=== PATIENT | female | born 1970 | race African-American/Black ===

== ENCOUNTER 2017-03-27 07:23 | Observation (INO) | payer OTHER ==
[~2017-03-27] VITALS: Ht 162.6 cm; Wt 58.0 kg
[2017-03-27] VITALS (8 sets, daily range): BP systolic 144–189; BP diastolic 64–119; PULSE 82–93; RESP 18–20; TEMP 98.1–99.3; O2SAT 95–100
[~2017-03-27 07:23] MED LIST: ADVAI250I PO; HYDR12.56 PO; IBUP600T26 PO; MIRTA15 PO; MONT10TA2 PO; ROBA750T3 PO; TRAZ50TA4 PO
--- NOTE | 2017-03-27 07:33 | PD ---
HPI Chief Complaint: Respiratory Distress Time Seen by Provider: 07:33 Travel History International Travel<30 days: No Contact w/Intl Traveler<30days: No Traveled to known affect area: No History of Present Illness HPI 46-year-old female came to the emergency room brought by EMS for respiratory distress. Patient has history of asthma. She was somnolent upon arrival. She would open her eyes upon calling her name but refuses to talk. History was mostly obtained from ring maker. Patient has not used her inhaler. There is questionable compliance issue since patient is not answering questions at this point. Patient received 2 albuterol nebulizers en route and IV Solu-Medrol. Upon arrival her oxygen saturation was 93% on room air. Rest of the vital signs were stable. [facility] Past Medical History Narrative Medical List of her past medical, surgical, social and family history is reviewed from the nursing note. Anemia: Yes Asthma: Yes Bipolar Disorder: Yes Anxiety: Yes Depression: Yes Cancer: No Cardiovascular Problems: Yes (HTN) Diabetes: No Diminished Hearing: No Endocrine: No Gastrointestinal Disorders: Yes GERD: Yes Genitourinary: No Headaches: Yes Hypertension: Yes Immune Disorder: No Implanted Vascular Access Dvce: No Insomnia: Yes Musculoskeletal: No Neurologic: Yes (HEADACHES) Psychiatric: Yes (Schizoaffective Disorder) Reproductive: No Respiratory: Yes Immunizations Current: Yes Migraines: Yes Schizophrenia: Yes (schizoaffective) Seizures: Yes (withdrawal induced seizure in 2006) ?: Not LMP: last week : 5 Para: 2 Miscarriage: 2 : 1 Dilation and Curettage (D&C): Yes Tubal Ligation: Yes Past Surgical History Surgical History: No Previous Surgery Gynecologic Surgery: Yes Other Surgery: Yes Social History Alcohol Use: Yes Tobacco Use: Yes (1/2 PPD) Substance Use: Yes Allergies-Medications (Allergen,Severity, Reaction): Coded Allergies: Sulfa (Sulfonamide Antibiotics) (Unverified Allergy, Severe, Hives, ) Comments List of her allergies reviewed from the nursing note. Reported Meds & Prescriptions Reported Meds & Active Scripts Active Narrative Medication List of her home medications reviewed from the nursing note. Review of Systems Except as stated in HPI: all other systems reviewed are Neg Respiratory: Positive: Shortness of Breath Physical Exam Narrative GENERAL: Lethargic, opens eyes upon calling her name but prefers to go back to sleep. Not answering questions SKIN: Focused skin assessment warm/dry. HEAD: Atraumatic. Normocephalic. EYES: Pupils equal and round. No scleral icterus. No injection or drainage. ENT: No nasal bleeding or discharge. Mucous membranes pink and moist. NECK: Trachea midline. No JVD. CARDIOVASCULAR: Regular rate and rhythm. No murmur appreciated. RESPIRATORY: Decreased air entry bilaterally with end expiratory wheeze. GASTROINTESTINAL: Abdomen soft, non-tender, nondistended. Hepatic and splenic margins not palpable. MUSCULOSKELETAL: No obvious deformities. No clubbing. No cyanosis. No edema. NEUROLOGICAL: Awake and alert. No obvious cranial nerve deficits. Motor grossly within normal limits. Normal speech. PSYCHIATRIC: Appropriate mood and affect; insight and judgment normal. Data Data Last Documented VS Vital Signs Date Time Temp Pulse Resp B/P (MAP) Pulse Ox O2 Delivery O2 Flow Rate FiO2 03/27/17 08:36 82 152/64 (93) 03/27/17 07:41 18 95 Room Air 03/27/17 07:33 98.4 Orders Orders Electrocardiogram (03/27/17 ) Complete Blood Count With Diff (03/27/17 07:38) Basic Metabolic Panel (Bmp) (03/27/17 07:38) B-Type Natriuretic Peptide (03/27/17 07:38) Magnesium (Mg) (03/27/17 07:38) Troponin I (03/27/17 07:38) Urinalysis - C+S If Indicated (03/27/17 07:38) Iv Access Insert/Monitor (03/27/17 07:38) Ecg Monitoring (03/27/17 07:38) Oximetry (03/27/17 07:38) Oxygen Administration (03/27/17 07:38) Chest, Single Ap (03/27/17 07:38) Sodium Chloride 0.9% Flush (Ns Flush) (03/27/17 07:45) Albuterol-Ipratropium Neb (Duoneb Neb) (03/27/17 07:45) Arterial Blood Gas (Abg) (03/27/17 ) Drug Screen, Random Urine (03/27/17 07:38) Naloxone Inj (Narcan Inj) (03/27/17 08:15) Potassium Chlor 10 Meq Premix (Kcl 10 Me (03/27/17 09:00) Potassium Chloride (Kcl) (03/27/17 09:00) Albuterol Neb (Albuterol Neb) (03/27/17 09:30) Place In Observation (03/27/17 ) Code Status (03/27/17 10:18) Vital Signs (Adult) Q4H (03/27/17 10:18) Activity Oob Ad Cristiana (03/27/17 10:18) Cigarette Machine Operator / Telemetry .CONTINUOUS (03/27/17 10:18) Intake + Output MAYRA.QSHIFT (03/27/17 10:18) Notify Dr: Other (03/27/17 10:18) Sodium Chlor 0.9% 1000 Ml Inj (Ns 1000 M (03/27/17 11:00) Sodium Chloride 0.9% Flush (Ns Flush) (03/27/17 10:30) Sodium Chloride 0.9% Flush (Ns Flush) (03/27/17 21:00) Acetaminophen (Tylenol) (03/27/17 10:30) Ondansetron Inj (Zofran Inj) (03/27/17 10:30) Basic Metabolic Panel (Bmp) (03/28/17 06:00) Complete Blood Count With Diff (03/28/17 06:00) Resp Oxygen Kale C Titrat 1-4 L (03/27/17 ) Scd Bilateral/Knee High MAYRA.BID (03/27/17 10:18) Naloxone Inj (Narcan Inj) (03/27/17 10:30) Docusate Sodium-Senna (Onelia-Colace) (03/27/17 21:00) Magnesium Hydroxide Liq (Milk Of Magnesi (03/27/17 10:30) Sennosides (Senokot) (03/27/17 10:30) Bisacodyl Supp (Dulcolax Supp) (03/27/17 10:30) Lactulose Liq (Lactulose Liq) (03/27/17 10:30) Budesonide Neb (Pulmicort Respule Neb) (03/27/17 11:00) Albuterol-Ipratropium Neb (Duoneb Neb) (03/27/17 12:00) Potassium, Serum (K) (03/27/17 14:00) Magnesium (Mg) (03/27/17 14:00) Admit Order (Ed Use Only) (03/27/17 10:32) Labs Laboratory Tests Test 03/27/17 07:35 03/27/17 07:48 03/27/17 08:20 White Blood Count 7.0 TH/MM3 Red Blood Count 4.43 MIL/MM3 Hemoglobin 13.5 GM/DL Hematocrit 40.1 % Mean Corpuscular Volume 90.3 FL Mean Corpuscular Hemoglobin 30.4 PG Mean Corpuscular Hemoglobin Concent 33.7 % Red Cell Distribution Width 14.8 % Platelet Count 219 TH/MM3 Mean Platelet Volume 7.9 FL Neutrophils (%) (Auto) 58.3 % Lymphocytes (%) (Auto) 23.1 % Monocytes (%) (Auto) 12.8 % Eosinophils (%) (Auto) 5.1 % Basophils (%) (Auto) 0.7 % Neutrophils # (Auto) 4.1 TH/MM3 Lymphocytes # (Auto) 1.6 TH/MM3 Monocytes # (Auto) 0.9 TH/MM3 Eosinophils # (Auto) 0.4 TH/MM3 Basophils # (Auto) 0.0 TH/MM3 CBC Comment DIFF FINAL Differential Comment Blood Urea Nitrogen 9 MG/DL Creatinine 0.77 MG/DL Random Glucose 77 MG/DL Calcium Level 8.9 MG/DL Magnesium Level 2.1 MG/DL Sodium Level 143 MEQ/L Potassium Level 3.0 MEQ/L Chloride Level 108 MEQ/L Carbon Dioxide Level 26.8 MEQ/L Anion Gap 8 MEQ/L Estimat Glomerular Filtration Rate 98 ML/MIN Troponin I 0.02 NG/ML B-Type Natriuretic Peptide 56 PG/ML Blood Gas Puncture Site RT RADIAL Blood Gas Patient Temperature 98.6 Blood Gas HCO3 24 mmol/L Blood Gas Base Excess -0.6 mmol/L Blood Gas Oxygen Saturation 87 % Arterial Blood pH 7.39 Arterial Blood Partial Pressure CO2 40 mmHg Arterial Blood Partial Pressure O2 61 mmHG Arterial Blood Oxygen Content 15.6 Vol % Arterial Blood Carboxyhemoglobin 4.3 % Arterial Blood Methemoglobin 0.9 % Blood Gas Hemoglobin 12.8 G/DL Blood Gas Inspired Oxygen 21 % Urine Color LIGHT-YELLOW Urine Turbidity CLEAR Urine pH 6.0 Urine Specific [place] 1.015 Urine Protein 30 mg/dL Urine Glucose (UA) NEG mg/dL Urine Ketones NEG mg/dL Urine Occult Blood NEG Urine Nitrite NEG Urine Bilirubin NEG Urine Urobilinogen LESS THAN 2.0 MG/DL Urine Leukocyte Esterase NEG Urine RBC 1 /hpf Urine WBC 1 /hpf Urine Squamous Epithelial Cells <1 /hpf Urine Bacteria RARE /hpf Urine Mucus FEW /lpf Microscopic Urinalysis Comment CULT NOT INDICATED Urine Opiates Screen NEG Urine Barbiturates Screen NEG Urine Amphetamines Screen NEG Urine Benzodiazepines Screen NEG Urine Cocaine Screen POS Urine Cannabinoids Screen NEG MDM Medical Decision Making Medical Screen Exam Complete: Yes Emergency Medical Condition: Yes Medical Record Reviewed: Yes Interpretation(s) Twelve-lead EKG was reviewed by me. Normal sinus rhythm, normal axis, nonspecific ST-T wave changes, LVH as per voltage criteria. Heart rate of 84 bpm. Differential Diagnosis Pneumonia, CHF, acute asthma exacerbation, substance abuse Narrative Course 10:44 AM patient was given 2 DuoNeb times by me. Patient was also given IV Narcan 0.4 mg to this to see if she wakes up since she was so somnolent. This did not affect the lethargy. Patient oxygen saturation went down to 90% although air entry has improved. I've given her 2 more albuterol nebulizer. Meanwhile urine drug screen came back and positive for cocaine. I have decided to admit her. I discussed the case with the hospitalist was accepted it. Procedures EKG Prior to Arrival: No Diagnosis Primary Impression: Acute asthma exacerbation Qualified Codes: J45.901 - Unspecified asthma with (acute) exacerbation Additional Impressions: Hypoxia Cocaine abuse Altered mental status Qualified Codes: R40.0 - Somnolence Admitting Information Admitting Physician Requests: Observation Scripts Beclomethasone Inh (Qvar Inh) 80 Mcg/Act Aero 1 PUFF INH BID for Asthma Management, #1 INHALER 0 Refills Prov: Marcin Wilson MD 03/28/17 Amlodipine (Amlodipine) 10 Mg Tab 10 MG PO DAILY for Blood Pressure Management, #30 TAB 0 Refills Prov: Marcin Wilson MD 03/28/17 Albuterol 18 GM Inh (Ventolin Hfa 18 GM Inh) 90 Mcg/Act Aer 1 PUFF INH Q4H Y for SHORTNESS OF BREATH, #1 INHALER 0 Refills Prov: Marcin Wilson MD 03/28/17 Hydrochlorothiazide (Hydrochlorothiazide) 25 Mg Tab 25 MG PO DAILY for htn, #30 TAB 0 Refills Prov: Marcin Wilson MD 03/28/17 Mirna Bourgeois MD Mar 27, 2017 07:33
[2017-03-27] MEDS ORDERED: HYDR25TA5 PO (07:35)
[2017-03-27] MEDS ORDERED: VENTAER INH (07:35)
[2017-03-27] MEDS ORDERED: SODIUM CHLORIDE 0.9% FLUSH 10 ML FLUSH IVF PRN (07:45)
[2017-03-27] MEDS: RESP: ALBUTEROL 2.5 MG/IPRATROPIUM 0.5 MG NEB (SCH) INH ×2 (07:47→07:48)
[2017-03-27 08:02] LABS: AUTOMATED NEUTROPHIL # 4.1 TH/MM3 (1.8-7.7); BASOPHIL % 0.7 % (0.0-2.0); EOSINOPHIL # 0.4 TH/MM3 (0-0.4); EOSINOPHIL % 5.1 % (0.0-4.0); HEMATOCRIT 40.1 % (35.0-46.0); HEMO FLAGS DIFF FINAL; LYMPH % 23.1 % (9.0-44.0); LYMPHOCYTE # 1.6 TH/MM3 (1.0-4.8); MEAN CELL VOLUME 90.3 FL (80.0-100.0); MEAN CORPUSCULAR HEMOGLOBIN 30.4 PG (27.0-34.0); MEAN CORPUSCULAR HGB CONC 33.7 % (32.0-36.0); MONO % 12.8 % (0.0-8.0); NEUT % 58.3 % (16.0-70.0); PLATELET COUNT 219 TH/MM3 (150-450); RED BLOOD COUNT 4.43 MIL/MM3 (4.00-5.30); RED CELL DISTRIBUTION WIDTH 14.8 % (11.6-17.2)
[2017-03-27 08:04] LABS: BLOOD GAS BASE EXCESS -0.6 mmol/L (-2-2); BLOOD GAS CARBOXYHEMOGLOBIN 4.3 % (0-4); BLOOD GAS HCO3 24 mmol/L (22-26); BLOOD GAS METHEMOGLOBIN 0.9 % (0-2); BLOOD GAS O2 HGB SATURATION 87 % (90-100); BLOOD GAS OXYGEN CONTENT 15.6 Vol % (12.0-20.0); BLOOD GAS PCO2 40 mmHg (38-42); BLOOD GAS PO2 61 mmHG (61-120); BLOOD GAS TOTAL HGB 12.8 G/DL (12.0-16.0); TEMP CORR TO 98.6
[2017-03-27 08:05] LABS: CRITICAL VALUE YES; DRAW SITE RT RADIAL; FIO2 21 %; NUMBER OF ARTERIAL PUNCTURES 2; STAT YES; ULNAR PULSE PRESENT
[2017-03-27] MEDS ORDERED: NALOXONE HCL 0.4 MG/ML AMP IV PUSH ONE (08:15)
[2017-03-27 08:18] LABS: BICARBONATE 26.8 MEQ/L (21.0-32.0); MAGNESIUM 2.1 MG/DL (1.5-2.5)
--- NOTE | 2017-03-27 08:27 | RADRPT ---
EXAM DATE/TIME: 03/27/2017 08:16 [place] COMPARISON: No previous studies available for comparison. INDICATIONS : Shortness of breath. MEDICAL HISTORY : None. SURGICAL HISTORY : None. ENCOUNTER: Initial ACUITY: 4 - 6 days PAIN SCORE: 0/10 LOCATION: Bilateral chest FINDINGS: A single view of the chest demonstrates the lungs to be symmetrically aerated without evidence of mas s, infiltrate or effusion. The cardiomediastinal contours are unremarkable. Osseous structures are intact. CONCLUSION: No acute disease. Yeison Gusman MD on March 27, 2017 at 8:20 Board Certified Radiologist. This report was verified electronically.
[2017-03-27] MEDS ORDERED: POTASSIUM CHLORIDE 20 MEQ CONTROLLED RELEASE TAB PO ONE (09:00)
[2017-03-27] MEDS ORDERED: POTASSIUM CHLOR 10 MEQ PREMIX 100 ML IV ONE (09:00)
[2017-03-27 09:14] LABS: BACTERIA, URINE RARE /hpf; BLOOD, URINE NEG (NEG); COMMENT (UR) CULT NOT INDICATED; CULTURE IF INDICATED CULT NOT INDICATED; GLUCOSE,URINE NEG (NEG); KETONE, URINE NEG (NEG); MUCUS URINE FEW /lpf (OCC); NITRITE,URINE NEG (NEG); SQUAMOUS EPITHELIAL CELL URINE <1 /hpf (0-5); URINE COLOR LIGHT-YELLOW (YELLW/STRAW)
[2017-03-27] MEDS: RESP: ALBUTEROL 2.5 MG/3 ML NEB (SCH) INH (09:28)
[2017-03-27] MEDS ORDERED: LACTULOSE SYRUP 20 GM/30 ML CUP PO PRN (10:30)
[2017-03-27] MEDS ORDERED: SENNOSIDES 8.6 MG TAB PO PRN (10:30)
[2017-03-27] MEDS ORDERED: SODIUM CHLORIDE 0.9% FLUSH 10 ML FLUSH IV FLUSH PRN (10:30)
[2017-03-27] MEDS ORDERED: BISACODYL 10 MG SUPP RECTAL PRN (10:30)
[2017-03-27] MEDS ORDERED: NALOXONE HCL 0.4 MG/ML AMP IV PUSH PRN (10:30)
[2017-03-27] MEDS ORDERED: ONDANSETRON HCL 4 MG/2 ML VIAL IVP PRN (10:30)
[2017-03-27] MEDS ORDERED: MAGNESIUM HYDROXIDE SUSP 30 ML CUP PO PRN (10:30)
[2017-03-27] MEDS ORDERED: ACETAMINOPHEN 325 MG TAB PO PRN (10:30)
[2017-03-27] MEDS: SODIUM CHLOR 0.9% 1000 ML INJ 1,000 ML IV SCH ×2 (11:36→21:55)
--- NOTE | 2017-03-27 11:49 | EKG ---
Date Performed: 03/27/2017 Time Performed: 07:41:20 PTAGE: 46 years EKG: Sinus rhythm MINIMAL VOLTAGE CRITERIA FOR LVH, CONSIDER NORMAL VARIANT NONSPECIFIC T-WAVE ABNORMALITY BORDERLINE ECG PREVIOUS TRACING : 12/16/2014 21.27 No significant change from previous tracing noted. DOCTOR: Terry Roy Interpretating Date/Time 03/27/2017 11:48:28
--- NOTE | 2017-03-27 12:16 | HHI.HP ---
HPI Service [facility] Primary Care Physician [facility] Admission Diagnosis acute asthma exacerbation, hypoxia Diagnoses: Chief Complaint: Shortness of breath Travel History International Travel<30 Days: No Contact w/Intl Traveler <30 Da: No Traveled to Known Affected Are: No History of Present Illness This is a pleasant 46 y/o Female with Bipolar Disorder, Asthma, Anxiety disorder , Depression, Hypertension Schizoaffective disorder, who came to ER with Shortness of breath, brought in by EMS, as per patient she is been off her medicines for the last three months, she had some problems with her and is living with her uncle, she has rescue inhaler from his uncle and is not taking her HCTZ for Hypertension, in ER managed as Asthma exacerbation, on my evaluation I could not find Expiratory wheezing. has good Inspiratory breaths. Review of Systems Constitutional: DENIES: Fever, Chills, Change in appetite Endocrine: DENIES: Heat/cold intolerance Eyes: DENIES: Blurred vision, Eye pain Except as stated in HPI: all other systems reviewed are Neg Past Family Social History Past Medical History Asthma Bipolar Disorder Anxiety Depression Hypertension Schizoaffective Disorder Withdrawal Induced seizure in 2006 Past Surgical History Tubal Ligation Reported Medications Reported Meds & Active Scripts Active Reported Ventolin Hfa 18 GM Inh (Albuterol Sulfate) 90 Mcg/Act Aer 1 Puff INH Q4H PRN Hydrochlorothiazide 25 Mg Tab 25 Mg PO DAILY Allergies: Coded Allergies: Sulfa (Sulfonamide Antibiotics) (Unverified Allergy, Severe, Hives, ) Active Ordered Medications Current Medications Medications (Trade) Dose Ordered Sig/Ele Route Start Time Stop Time Status Last Admin Sodium Chloride 1,000 ml @ 100 mls/hr Q10H IV 03/27/17 11:00 03/27/17 11:36 (NS Flush) 2 ml UNSCH PRN IV FLUSH 03/27/17 10:30 (NS Flush) 2 ml BID IV FLUSH 03/27/17 21:00 (Tylenol) 650 mg Q4H PRN PO 03/27/17 10:30 (Zofran Inj) 4 mg Q6H PRN IVP 03/27/17 10:30 (Narcan Inj) 0.4 mg UNSCH PRN IV PUSH 03/27/17 10:30 (Onelia-Colace) 1 tab BID PO 03/27/17 21:00 (Milk Of Magnesia Liq) 30 ml Q12H PRN PO 03/27/17 10:30 (Senokot) 17.2 mg Q12H PRN PO 03/27/17 10:30 (Dulcolax Supp) 10 mg DAILY PRN RECTAL 03/27/17 10:30 (Lactulose Liq) 30 ml DAILY PRN PO 03/27/17 10:30 (Pulmicort Respule Neb) 0.5 mg Q12HR NEB NEB 03/27/17 11:00 (Duoneb Neb) 1 ampule Q4HR NEB NEB 03/27/17 12:00 Family History asked and denied. Social History Alcohol abuse daily, Beer and hard liquor Tobacco dependence half pack of cigarettes daily Cocaine abuse Physical Exam Vital Signs Vital Signs Date Time Temp Pulse Resp B/P (MAP) Pulse Ox O2 Delivery O2 Flow Rate FiO2 03/27/17 08:36 82 152/64 (93) 03/27/17 07:41 84 18 177/119 (138) 95 Room Air 03/27/17 07:41 95 Room Air 03/27/17 07:36 96 Room Air 03/27/17 07:33 98.4 90 18 177/119 (138) 100 Room Air Physical Exam GENERAL: Well-developed patient, in no apparent distress. SKIN: No rashes, ecchymoses or lesions. Cool and dry. HEAD: Atraumatic. Normocephalic. No temporal or scalp tenderness. EYES: Pupils equal round and reactive. Extraocular motions intact. No scleral icterus. No injection or drainage. ENT: Nose without bleeding, purulent drainage or septal hematoma. Throat without erythema, tonsillar hypertrophy or exudate. Uvula midline. Airway patent. NECK: Trachea midline. No JVD or lymphadenopathy. Supple, nontender, no meningeal signs. CARDIOVASCULAR: Regular rate and rhythm without murmurs, gallops, or rubs. RESPIRATORY: Clear to auscultation. Breath sounds equal bilaterally. No wheezes , rales, or rhonchi. GASTROINTESTINAL: Abdomen soft, non-tender, nondistended. No hepato-splenomegaly , or palpable masses. No guarding. MUSCULOSKELETAL: Extremities without clubbing, cyanosis, or edema. No joint tenderness, effusion, or edema noted. No calf tenderness. Negative Homans sign bilaterally. NEUROLOGICAL: Awake and alert. Cranial nerves II through XII intact. Motor and sensory grossly within normal limits. Five out of 5 muscle strength in all muscle groups. Normal speech. Laboratory Laboratory Tests Test 03/27/17 07:35 03/27/17 07:48 03/27/17 08:20 White Blood Count 7.0 Red Blood Count 4.43 Hemoglobin 13.5 Hematocrit 40.1 Mean Corpuscular Volume 90.3 Mean Corpuscular Hemoglobin 30.4 Mean Corpuscular Hemoglobin Concent 33.7 Red Cell Distribution Width 14.8 Platelet Count 219 Mean Platelet Volume 7.9 Neutrophils (%) (Auto) 58.3 Lymphocytes (%) (Auto) 23.1 Monocytes (%) (Auto) 12.8 Eosinophils (%) (Auto) 5.1 Basophils (%) (Auto) 0.7 Neutrophils # (Auto) 4.1 Lymphocytes # (Auto) 1.6 Monocytes # (Auto) 0.9 Eosinophils # (Auto) 0.4 Basophils # (Auto) 0.0 CBC Comment DIFF FINAL Differential Comment Blood Urea Nitrogen 9 Creatinine 0.77 Random Glucose 77 Calcium Level 8.9 Magnesium Level 2.1 Sodium Level 143 Potassium Level 3.0 Chloride Level 108 Carbon Dioxide Level 26.8 Anion Gap 8 Estimat Glomerular Filtration Rate 98 Troponin I 0.02 B-Type Natriuretic Peptide 56 Blood Gas Puncture Site RT RADIAL Blood Gas Patient Temperature 98.6 Blood Gas HCO3 24 Blood Gas Base Excess -0.6 Blood Gas Oxygen Saturation 87 Arterial Blood pH 7.39 Arterial Blood Partial Pressure CO2 40 Arterial Blood Partial Pressure O2 61 Arterial Blood Oxygen Content 15.6 Arterial Blood Carboxyhemoglobin 4.3 Arterial Blood Methemoglobin 0.9 Blood Gas Hemoglobin 12.8 Blood Gas Inspired Oxygen 21 Urine Color LIGHT-YELLOW Urine Turbidity CLEAR Urine pH 6.0 Urine Specific [place] 1.015 Urine Protein 30 Urine Glucose (UA) NEG Urine Ketones NEG Urine Occult Blood NEG Urine Nitrite NEG Urine Bilirubin NEG Urine Urobilinogen LESS THAN 2.0 Urine Leukocyte Esterase NEG Urine RBC 1 Urine WBC 1 Urine Squamous Epithelial Cells <1 Urine Bacteria RARE Urine Mucus FEW Microscopic Urinalysis Comment CULT NOT INDICATED Urine Opiates Screen NEG Urine Barbiturates Screen NEG Urine Amphetamines Screen NEG Urine Benzodiazepines Screen NEG Urine Cocaine Screen POS Urine Cannabinoids Screen NEG Result Diagram: 03/27/17 0735 03/27/1735 Imaging Last Impressions Chest X-Ray 03/27/1738 Signed Impressions: Service Date/Time: Monday, March 27, 2017 08:16 - CONCLUSION: No acute disease. MD Danielle Velez VTE Risk Assessment Danielle VTE Risk Assessment: No/Low Risk (score <= 1) Caprini Risk Assessment Model Point Value = 1 Point Value = 2 Point Value = 3 Point Value = 5 Age 41-60 Minor surgery BMI > 25 kg/m2 Swollen legs Varicose veins or History of unexplained or recurrent spontaneous Oral contraceptives or hormone replacement Sepsis (< 1 month) Serious lung disease, including pneumonia (< 1 month) Abnormal pulmonary function Acute myocardial infarction Congestive heart failure (< 1 month) History of inflammatory bowel disease Medical patient at bed rest Age 61-74 Arthroscopic surgery Major open surgery (> 45 min) Laparoscopic surgery (> 45 min) Malignancy Confined to bed (> 72 hours) Immobilizing plaster cast Central venous access Age >= 75 History of VTE Family history of VTE Factor V Leiden Prothrombin [id number] Lupus anticoagulant Anticardiolipin antibodies Elevated serum homocysteine Heparin-induced thrombocytopenia Other congenital or acquired thrombophilia Stroke (< 1 month) Elective arthroplasty Hip, pelvis, or leg fracture Acute spinal cord injury (< 1 month) Prophylaxis Regimen Total Risk Factor Score Risk Level Prophylaxis Regimen 0-1 Low Early ambulation 2 Moderate Order ONE of the following: *Sequential Compression Device (SCD) *Heparin 5000 units SQ BID 3-4 Higher Order ONE of the following medications: *Heparin 5000 units SQ TID *Enoxaparin/Lovenox 40 mg SQ daily (WT < 150 kg, CrCl > 30 mL/min) *Enoxaparin/Lovenox 30 mg SQ daily (WT < 150 kg, CrCl > 10-29 mL/min) *Enoxaparin/Lovenox 30 mg SQ BID (WT < 150 kg, CrCl > 30 mL/min) AND/OR *Sequential Compression Device (SCD) 5 or more Highest Order ONE of the following medications: *Heparin 5000 units SQ TID (Preferred with Epidurals) *Enoxaparin/Lovenox 40 mg SQ daily (WT < 150 kg, CrCl > 30 mL/min) *Enoxaparin/Lovenox 30 mg SQ daily (WT < 150 kg, CrCl > 10-29 mL/min) *Enoxaparin/Lovenox 30 mg SQ BID (WT < 150 kg, CrCl > 30 mL/min) AND *Sequential Compression Device (SCD) Assessment and Plan Assessment and Plan This is a pleasant 46 y/o Female with Asthma who came to ER transferred by EMS due to Acute Asthma exacerbation 1. Acute Asthma exacerbation Improving, continue Nebulized corticosteroids, and Beta Mimetics, Oxygen to keep oxygen saturation over 90% 2. Bipolar Disorder/Anxiety Disorder/Bipolar Disorder/Schizophrenia she states use Invega and Risperdal but off this medicines at this time will need to follow with her Primary Psychiatry specialist on discharge 3. Hypertension not using HCTZ at this time Uncontrolled re started her medicines. Had ECG Sinus rhythm. 4. Tobacco dependence strongly recommended to stop smoking 5. Alcohol abuse she will be placed on CIWA protocol to avoid complications 6. Polysubstance abuse was used IV Narcan in ER the patient woke up from Lethargy probable secondary to drug abuse DVT prophylaxis SCDs. Code Status Full Code Discussed Condition With Patient and ER physician Doctor Mirna Bourgeois Guillermo MD Mar 27, 2017 12:16 pm
[2017-03-27] MEDS: RESP: BUDESONIDE 0.5 MG/2 ML NEB NEB SCH ×2 (13:13→20:25)
[2017-03-27] MEDS: RESP: ALBUTEROL 2.5 MG/IPRATROPIUM 0.5 MG NEB (SCH) NEB ×3 (13:13→20:25)
[2017-03-27] MEDS: HYDROCHLOROTHIAZIDE 25 MG TAB PO SCH (13:35)
[2017-03-27 18:03] LABS: MAGNESIUM 1.9 MG/DL (1.5-2.5)
[2017-03-27 18:30] LABS: POTASSIUM 3.5 MEQ/L (3.5-5.1)
[2017-03-27] MEDS: DOCUSATE SODIUM 50 MG/SENNA 8.6 MG TAB PO SCH (21:00)
[2017-03-27] MEDS: SODIUM CHLORIDE 0.9% FLUSH 10 ML FLUSH IV FLUSH SCH (21:00)
[2017-03-28] MEDS: RESP: ALBUTEROL 2.5 MG/IPRATROPIUM 0.5 MG NEB (SCH) NEB ×5 (00:06→15:50)
[2017-03-28 02:20] VITALS: BP 173/103; PULSE 83; RESP 18; TEMP 98.2; O2SAT 97
[2017-03-28 05:10] LABS: AUTOMATED NEUTROPHIL # 7.1 TH/MM3 (1.8-7.7); BASOPHIL % 0.3 % (0.0-2.0); HEMATOCRIT 35.2 % (35.0-46.0); HEMO FLAGS DIFF FINAL; LYMPH % 13.3 % (9.0-44.0); LYMPHOCYTE # 1.3 TH/MM3 (1.0-4.8); MEAN CELL VOLUME 90.3 FL (80.0-100.0); MEAN CORPUSCULAR HEMOGLOBIN 31.3 PG (27.0-34.0); MEAN CORPUSCULAR HGB CONC 34.6 % (32.0-36.0); MONO % 11.4 % (0.0-8.0); PLATELET COUNT 219 TH/MM3 (150-450); RED CELL DISTRIBUTION WIDTH 14.3 % (11.6-17.2); WHITE BLOOD COUNT 9.5 TH/MM3 (4.0-11.0)
[2017-03-28 05:41] LABS: BICARBONATE 26.5 MEQ/L (21.0-32.0); POTASSIUM 3.2 MEQ/L (3.5-5.1)
[2017-03-28 07:10] VITALS: O2SAT 97
[2017-03-28] MEDS: RESP: BUDESONIDE 0.5 MG/2 ML NEB NEB SCH (07:10)
[2017-03-28 07:31] VITALS: BP 177/98; PULSE 81; RESP 16; TEMP 98.3; O2SAT 97
[2017-03-28] MEDS ORDERED: POTASSIUM CHLORIDE 20 MEQ CONTROLLED RELEASE TAB PO ONE ×3 (08:15→19:30)
--- NOTE | 2017-03-28 08:15 | HHI.PR ---
Subjective Remarks This is a pleasant 46 y/o Female with Bipolar Disorder, Asthma, Anxiety disorder , Depression, Hypertension Schizoaffective disorder, who came to ER with Shortness of breath, brought in by EMS, as per patient she is been off her medicines for the last three months, she had some problems with her and is living with her uncle, she has rescue inhaler from his uncle and is not taking her HCTZ for Hypertension, in ER managed as Asthma exacerbation, on my evaluation I could not find Expiratory wheezing. has good Inspiratory breaths. 03/28: Seen in her bedroom stable, trying to Improve her blood pressure and replacing potassium level, she is not complaining for her primary concern of Asthma attack at this time no wheezing, good oxygen saturation. no nausea, vomit or diarrhea. Objective Vital Signs Date Time Temp Pulse Resp B/P (MAP) Pulse Ox O2 Delivery O2 Flow Rate FiO2 03/28/17 07:31 98.3 81 16 177/98 (124) 97 03/28/17 07:10 97 21 03/28/17 02:20 98.2 83 18 173/103 (126) 97 03/27/17 22:05 98.3 91 19 144/103 (117) 96 03/27/17 20:28 97 03/27/17 16:15 99.3 90 18 189/100 (129) 97 03/27/17 13:15 98.1 90 20 184/102 (129) 96 03/27/17 12:20 93 20 162/93 (116) 96 Room Air 03/27/17 08:36 82 152/64 (93) I/O 03/27/17 03/27/17 03/27/17 03/28/17 03/28/17 03/28/17 07:00 15:00 23:00 07:00 15:00 23:00 Intake Total 100 ml Balance 100 ml Intake IV Total 100 ml # Voids 3 Result Diagram: 03/28/1740403/28/17404 Imaging Last Impressions Chest X-Ray 03/27/1738 Signed Impressions: Service Date/Time: Monday, March 27, 2017 08:16 - CONCLUSION: No acute disease. Yeison Gusman MD Procedures None Other Results Laboratory Tests Test 03/27/17 07:35 03/27/17 07:48 03/27/17 08:20 03/27/17 16:34 Troponin I 0.02 NG/ML B-Type Natriuretic Peptide 56 PG/ML Blood Gas Puncture Site RT RADIAL Blood Gas Patient Temperature 98.6 Blood Gas HCO3 24 mmol/L Blood Gas Base Excess -0.6 mmol/L Blood Gas Oxygen Saturation 87 % Arterial Blood pH 7.39 Arterial Blood Partial Pressure CO2 40 mmHg Arterial Blood Partial Pressure O2 61 mmHG Arterial Blood Oxygen Content 15.6 Vol % Arterial Blood Carboxyhemoglobin 4.3 % Arterial Blood Methemoglobin 0.9 % Blood Gas Hemoglobin 12.8 G/DL Blood Gas Inspired Oxygen 21 % Urine Color LIGHT-YELLOW Urine Turbidity CLEAR Urine pH 6.0 Urine Specific [place] 1.015 Urine Protein 30 mg/dL Urine Glucose (UA) NEG mg/dL Urine Ketones NEG mg/dL Urine Occult Blood NEG Urine Nitrite NEG Urine Bilirubin NEG Urine Urobilinogen LESS THAN 2.0 MG/DL Urine Leukocyte Esterase NEG Urine RBC 1 /hpf Urine WBC 1 /hpf Urine Squamous Epithelial Cells <1 /hpf Urine Bacteria RARE /hpf Urine Mucus FEW /lpf Microscopic Urinalysis Comment CULT NOT INDICATED Urine Opiates Screen NEG Urine Barbiturates Screen NEG Urine Amphetamines Screen NEG Urine Benzodiazepines Screen NEG Urine Cocaine Screen POS Urine Cannabinoids Screen NEG Magnesium Level 1.9 MG/DL Test 03/28/17 04:05 White Blood Count 9.5 TH/MM3 Red Blood Count 3.90 MIL/MM3 Hemoglobin 12.2 GM/DL Hematocrit 35.2 % Mean Corpuscular Volume 90.3 FL Mean Corpuscular Hemoglobin 31.3 PG Mean Corpuscular Hemoglobin Concent 34.6 % Red Cell Distribution Width 14.3 % Platelet Count 219 TH/MM3 Mean Platelet Volume 8.4 FL Neutrophils (%) (Auto) 75.0 % Lymphocytes (%) (Auto) 13.3 % Monocytes (%) (Auto) 11.4 % Eosinophils (%) (Auto) 0.0 % Basophils (%) (Auto) 0.3 % Neutrophils # (Auto) 7.1 TH/MM3 Lymphocytes # (Auto) 1.3 TH/MM3 Monocytes # (Auto) 1.1 TH/MM3 Eosinophils # (Auto) 0.0 TH/MM3 Basophils # (Auto) 0.0 TH/MM3 CBC Comment DIFF FINAL Differential Comment Blood Urea Nitrogen 15 MG/DL Creatinine 0.92 MG/DL Random Glucose 107 MG/DL Calcium Level 9.1 MG/DL Sodium Level 143 MEQ/L Potassium Level 3.2 MEQ/L Chloride Level 107 MEQ/L Carbon Dioxide Level 26.5 MEQ/L Anion Gap 10 MEQ/L Estimat Glomerular Filtration Rate 80 ML/MIN Objective Remarks GENERAL: Well-developed patient, in no apparent distress. SKIN: No rashes, ecchymoses or lesions. Cool and dry. HEAD: Atraumatic. Normocephalic. No temporal or scalp tenderness. EYES: Pupils equal round and reactive. Extraocular motions intact. No scleral icterus. No injection or drainage. ENT: Nose without bleeding, purulent drainage or septal hematoma. Throat without erythema, tonsillar hypertrophy or exudate. Uvula midline. Airway patent. NECK: Trachea midline. No JVD or lymphadenopathy. Supple, nontender, no meningeal signs. CARDIOVASCULAR: Regular rate and rhythm without murmurs, gallops, or rubs. RESPIRATORY: Clear to auscultation. Breath sounds equal bilaterally. No wheezes , rales, or rhonchi. GASTROINTESTINAL: Abdomen soft, non-tender, nondistended. No hepato-splenomegaly , or palpable masses. No guarding. MUSCULOSKELETAL: Extremities without clubbing, cyanosis, or edema. No joint tenderness, effusion, or edema noted. No calf tenderness. Negative Homans sign bilaterally. NEUROLOGICAL: Awake and alert. Cranial nerves II through XII intact. Motor and sensory grossly within normal limits. Five out of 5 muscle strength in all muscle groups. Normal speech. Medications and IVs Current Medications Medications (Trade) Dose Ordered Sig/Ele Route Start Time Stop Time Status Last Admin Sodium Chloride 1,000 ml @ 100 mls/hr Q10H IV 03/27/17 11:00 03/27/17 21:55 (NS Flush) 2 ml UNSCH PRN IV FLUSH 03/27/17 10:30 (NS Flush) 2 ml BID IV FLUSH 03/27/17 21:00 03/27/17 21:00 (Tylenol) 650 mg Q4H PRN PO 03/27/17 10:30 (Zofran Inj) 4 mg Q6H PRN IVP 03/27/17 10:30 (Narcan Inj) 0.4 mg UNSCH PRN IV PUSH 03/27/17 10:30 (Onelia-Colace) 1 tab BID PO 03/27/17 21:00 (Milk Of Magnesia Liq) 30 ml Q12H PRN PO 03/27/17 10:30 (Senokot) 17.2 mg Q12H PRN PO 03/27/17 10:30 (Dulcolax Supp) 10 mg DAILY PRN RECTAL 03/27/17 10:30 (Lactulose Liq) 30 ml DAILY PRN PO 03/27/17 10:30 (Pulmicort Respule Neb) 0.5 mg Q12HR NEB NEB 03/27/17 11:00 03/28/17 07:10 (Duoneb Neb) 1 ampule Q4HR NEB NEB 03/27/17 12:00 03/28/17 07:10 (Hydrodiuril) 25 mg DAILY PO 03/27/17 12:30 03/27/17 13:35 A/P Assessment and Plan This is a pleasant 46 y/o Female with Asthma who came to ER transferred by EMS due to Acute Asthma exacerbation 1. Acute Asthma exacerbation Improving, continue Nebulized corticosteroids, and Beta Mimetics, Oxygen to keep oxygen saturation over 90% Improved. 2. Bipolar Disorder/Anxiety Disorder/Bipolar Disorder/Schizophrenia she states use Invega and Risperdal but off this medicines at this time will need to follow with her Primary Psychiatry specialist on discharge 3. Hypertension not using HCTZ at this time Uncontrolled, continue HCTZ and Amlodipine Added 10 mg daily 5. Alcohol abuse she will be placed on CIWA protocol to avoid complications 6. Polysubstance abuse was used IV Narcan in ER the patient woke up from Lethargy probable secondary to drug abuse 7. Electrolyte derangement replacing and following. DVT prophylaxis SCDs. Code Status Full Code Discussed Condition With Patient and nurse. Discharge Planning Expected later today or in am tomorrow. Marcin Wilson MD Mar 28, 2017 08:15
[2017-03-28] MEDS: DOCUSATE SODIUM 50 MG/SENNA 8.6 MG TAB PO SCH (09:00)
[2017-03-28] MEDS ORDERED: amLODIPine BESYLATE 5 MG TAB PO SCH ×2 (09:00)
[2017-03-28] MEDS: HYDROCHLOROTHIAZIDE 25 MG TAB PO SCH (10:07)
[2017-03-28] MEDS: SODIUM CHLORIDE 0.9% FLUSH 10 ML FLUSH IV FLUSH SCH (10:08)
[2017-03-28] MEDS ORDERED: MAGNESIUM OXIDE 400 MG TAB PO SCH (11:00)
[2017-03-28 11:53] VITALS: BP 170/90; PULSE 93; RESP 16; TEMP 98.5; O2SAT 94
[2017-03-28 16:51] VITALS: BP 157/96; PULSE 86; RESP 16; TEMP 98.2; O2SAT 97
[2017-03-28 17:14] VITALS: PULSE 83
[2017-03-28] MEDS ORDERED: AMLO10TA2 PO (17:34)
[2017-03-28] MEDS ORDERED: BECL80AE3 INH (17:34)
[2017-03-28] MEDS ORDERED: VENTAER INH (17:34)
[2017-03-28] MEDS ORDERED: HYDR25TA5 PO (17:34)
--- NOTE | 2017-03-28 17:37 | HHI.DS ---
Discharge Summary Admission Date Mar 27, 2017 at 10:34 am Discharge Date: Mar 28, 2017 Admitting Diagnosis acute asthma exacerbation, hypoxia (1) Hypertension ICD Code: I10 - Essential (primary) hypertension Diagnosis: Principal (2) Acute asthma exacerbation ICD Code: J45.901 - Unspecified asthma with (acute) exacerbation Diagnosis: Principal Status: Acute Procedures None Brief History - From Admission This is a pleasant 46 y/o Female with Bipolar Disorder, Asthma, Anxiety disorder , Depression, Hypertension Schizoaffective disorder, who came to ER with Shortness of breath, brought in by EMS, as per patient she is been off her medicines for the last three months, she had some problems with her and is living with her uncle, she has rescue inhaler from his uncle and is not taking her HCTZ for Hypertension, in ER managed as Asthma exacerbation, on my evaluation I could not find Expiratory wheezing. has good Inspiratory breaths. CBC/BMP: 03/28/17 0405 03/28/17 1332 Significant Findings Laboratory Tests Test 03/27/17 07:35 03/27/17 07:48 03/27/17 08:20 03/27/17 16:34 Monocytes (%) (Auto) 12.8 % (0.0-8.0) Eosinophils (%) (Auto) 5.1 % (0.0-4.0) Potassium Level 3.0 MEQ/L (3.5-5.1) Chloride Level 108 MEQ/L (98-107) Blood Gas Oxygen Saturation 87 % (90-100) Arterial Blood Carboxyhemoglobin 4.3 % (0-4) Urine Protein 30 mg/dL (NEG-TRACE) Urine Bacteria RARE /hpf (NONE) Urine Mucus FEW /lpf (OCC) Urine Cocaine Screen POS (NEG) Test 03/28/17 04:05 03/28/17 13:32 Red Blood Count 3.90 MIL/MM3 (4.00-5.30) Neutrophils (%) (Auto) 75.0 % (16.0-70.0) Monocytes (%) (Auto) 11.4 % (0.0-8.0) Monocytes # (Auto) 1.1 TH/MM3 (0-0.9) Random Glucose 107 MG/DL (74-106) Potassium Level 3.2 MEQ/L (3.5-5.1) 3.4 MEQ/L (3.5-5.1) Estimat Glomerular Filtration Rate 80 ML/MIN (>89) Imaging Last Impressions Chest X-Ray 03/27/17 0738 Signed Impressions: Service Date/Time: Monday, March 27, 2017 08:16 - CONCLUSION: No acute disease. Yeison Gusman MD PE at Discharge GENERAL: Well-developed patient, in no apparent distress. SKIN: No rashes, ecchymoses or lesions. Cool and dry. HEAD: Atraumatic. Normocephalic. No temporal or scalp tenderness. EYES: Pupils equal round and reactive. Extraocular motions intact. No scleral icterus. No injection or drainage. ENT: Nose without bleeding, purulent drainage or septal hematoma. Throat without erythema, tonsillar hypertrophy or exudate. Uvula midline. Airway patent. NECK: Trachea midline. No JVD or lymphadenopathy. Supple, nontender, no meningeal signs. CARDIOVASCULAR: Regular rate and rhythm without murmurs, gallops, or rubs. RESPIRATORY: Clear to auscultation. Breath sounds equal bilaterally. No wheezes , rales, or rhonchi. GASTROINTESTINAL: Abdomen soft, non-tender, nondistended. No hepato-splenomegaly , or palpable masses. No guarding. MUSCULOSKELETAL: Extremities without clubbing, cyanosis, or edema. No joint tenderness, effusion, or edema noted. No calf tenderness. Negative Homans sign bilaterally. NEUROLOGICAL: Awake and alert. Cranial nerves II through XII intact. Motor and sensory grossly within normal limits. Five out of 5 muscle strength in all muscle groups. Normal speech. Hospital Course This is a pleasant 46 y/o Female with Bipolar Disorder, Asthma, Anxiety disorder , Depression, Hypertension Schizoaffective disorder, who came to ER with Shortness of breath, brought in by EMS, as per patient she is been off her medicines for the last three months, she had some problems with her and is living with her uncle, she has rescue inhaler from his uncle and is not taking her HCTZ for Hypertension, in ER managed as Asthma exacerbation, on my evaluation I could not find Expiratory wheezing. has good Inspiratory breaths. 03/28: Seen in her bedroom stable, trying to Improve her blood pressure and replacing potassium level, she is not complaining for her primary concern of Asthma attack at this time no wheezing, good oxygen saturation. no nausea, vomit or diarrhea. Assessment and Plan This is a pleasant 46 y/o Female with Asthma who came to ER transferred by EMS due to Acute Asthma exacerbation 1. Acute Asthma exacerbation Improving, continue Nebulized corticosteroids, and Beta Mimetics, Oxygen to keep oxygen saturation over 90% Improved. 2. Bipolar Disorder/Anxiety Disorder/Bipolar Disorder/Schizophrenia she states use Invega and Risperdal but off this medicines at this time will need to follow with her Primary Psychiatry specialist on discharge 3. Hypertension Improving on actual regimen will continue HCTZ 25 mg and Amlodipine 10 mg daily and follow with PCP 5. Alcohol abuse she will be placed on CIWA protocol to avoid complications 6. Polysubstance abuse was used IV Narcan in ER the patient woke up from Lethargy probable secondary to drug abuse 7. Electrolyte derangement replaced. DVT prophylaxis SCDs. Code Status Full Code Discussed Condition With Patient and nurse. Discharge Planning Discharge home Pt Condition on Discharge: Good Discharge Disposition: Discharge Home Discharge Time: <= 30 minutes Discharge Instructions DIET: Follow Instructions for: Heart Healthy Diet Activities you can perform: Regular-No Restrictions Marcin Wilson MD Mar 28, 2017 5:37 pm
== END 2017-03-28 18:54 | disposition home or self-care (01) ==
LOC: NEPC 07:23 → NEDA 10:34 → NEPFCDU 12:49
PROVIDERS: ADMIT Internal Medicine; ATTEND Internal Medicine
DX: J45.901 Unspecified asthma with (acute) exacerbation (principal); I10 Essential (primary) hypertension; R09.02 Hypoxemia; F14.10 Cocaine abuse, uncomplicated; F31.9 Bipolar disorder, unspecified; F41.9 Anxiety disorder, unspecified; F25.9 Schizoaffective disorder, unspecified; F10.10 Alcohol abuse, uncomplicated; F17.210 Nicotine dependence, cigarettes, uncomplicated; R94.31 Abnormal electrocardiogram [ECG] [EKG]; R06.02 Shortness of breath; Z79.899 Other long term (current) drug therapy
CPT/HCPCS: 36600; 71010; 80048; 80307; 81001; 82805; 83735; 83880; 84132; 84484; 85025; 93005; 94640; 94664; 96361; 96365; 99285; G0378; J2310; J3480; J7030; J7613; J7626

== ENCOUNTER 2017-10-29 10:55 | Observation (INO) | payer OTHER ==
[~2017-10-29] VITALS: Ht 162.6 cm; Wt 60.0 kg
[2017-10-29] VITALS (8 sets, daily range): BP systolic 113–165; BP diastolic 62–108; PULSE 74–100; RESP 16–19; TEMP 98.5–100.1; O2SAT 93–100
[~2017-10-29 10:55] MED LIST changes: -ADVAI250I PO; +AMLO10TA2 PO; +BECL80AE3 INH; -HYDR12.56 PO; +HYDR25TA5 PO; -IBUP600T26 PO; -MIRTA15 PO; -MONT10TA2 PO; -ROBA750T3 PO; -TRAZ50TA4 PO; +VENTAER INH
[2017-10-29] MEDS ORDERED: SODIUM CHLOR 0.9% 1000 ML INJ 1,000 ML IV SCH ×2 (11:02→14:28)
--- NOTE | 2017-10-29 11:09 | PD ---
HPI Chief Complaint: Abdominal Pain Time Seen by Provider: 11:02 Travel History International Travel<30 days: No Contact w/Intl Traveler<30days: No Traveled to known affect area: No History of Present Illness HPI The patient is a 47-year-old female who presents to the emergency department via EMS for abdominal pain. The patient states she was awakened approximately 1 hour prior to arrival for abdominal pain. The abdominal pain is epigastric, radiates to the left and right, sharp, but not associated with any nausea or vomiting. The patient denies any diarrhea or constipation. She denies any history of previous abdominal pain and denies any subsequent history of pancreatitis, cholelithiasis, peptic ulcer disease, or gastritis. She does admit to drinking alcohol, last alcohol intake was 2 days ago. Her last menstrual cycle was October 03, 2017, she denies with history of tubal ligation. She denies any accompanying chest pain, shortness of breath, or diaphoresis. Symptoms are moderate. PFSH Past Medical History Anemia: Yes Asthma: Yes Bipolar Disorder: Yes Anxiety: Yes Depression: Yes Cancer: No Cardiovascular Problems: Yes Diabetes: No Diminished Hearing: No Endocrine: No Gastrointestinal Disorders: Yes GERD: Yes Genitourinary: No Headaches: Yes Hypertension: Yes Immune Disorder: No Implanted Vascular Access Dvce: No Insomnia: Yes Musculoskeletal: No Neurologic: Yes (HEADACHES) Psychiatric: Yes (Schizoaffective Disorder) Respiratory: Yes Immunizations Current: Yes Migraines: Yes Schizophrenia: Yes (schizoaffective) Seizures: Yes (withdrawal induced seizure in 2006) ?: Not LMP: 10/03/17 : 5 Para: 2 Miscarriage: 2 : 1 Dilation and Curettage (D&C): Yes Tubal Ligation: Yes Past Surgical History Gynecologic Surgery: Yes Other Surgery: Yes Social History Alcohol Use: Yes Tobacco Use: Yes (1/2 PPD) Substance Use: Yes Allergies-Medications (Allergen,Severity, Reaction): Coded Allergies: Sulfa (Sulfonamide Antibiotics) (Unverified Allergy, Severe, Hives, ) Reported Meds & Prescriptions Reported Meds & Active Scripts Active Amlodipine (Amlodipine Besylate) 10 Mg Tab 10 Mg PO DAILY Ventolin Hfa 18 GM Inh (Albuterol Sulfate) 90 Mcg/Act Aer 1 Puff INH Q4H PRN Hydrochlorothiazide 25 Mg Tab 25 Mg PO DAILY Reported Folic Acid 0.4 Mg Tab 1 Mg PO DAILY Prazosin (Prazosin HCl) 2 Mg Cap 2 Mg PO HS Mirtazapine 15 Mg Tab 15 Mg PO HS Risperidone 4 Mg Tab 2 Mg PO DAILY Lisinopril 40 Mg Tab 40 Mg PO HS Valacyclovir (Valacyclovir HCl) 500 Mg Tab 500 Mg PO DAILY Thera-M (Multiple Vitamins W/ Minerals) 1 Tab 1 Tab PO DAILT Trazodone (Trazodone HCl) 50 Mg Tab 50 Mg PO HS Ferrous Sulfate DR (Ferrous Sulfate) 324 Mg Tabdr 324 Mg PO DAILY Sertraline (Sertraline HCl) 100 Mg Tab 50 Mg PO DAILY Vitamin B-1 (Thiamine HCl) 100 Mg Tab 100 Mg PO DAILY Acamprosate DR 333 Mg Tab 333 Mg PO TID Divalproex ER (Divalproex Sodium) 250 Mg Lucero 250 Mg PO HS Symbicort Inh (Budesonide/Formoterol Fumarate) 160-4.5 Mcg/Act Aero 2 Puff INH Q12HR Review of Systems Except as stated in HPI: all other systems reviewed are Neg General / Constitutional: No: Fever, Chills Cardiovascular: No: Chest Pain or Discomfort Respiratory: No: Shortness of Breath Gastrointestinal: Positive: Abdominal Pain, No: Nausea, Vomiting, Diarrhea Genitourinary: No: Dysuria, Discharge, Vaginal Bleeding Physical Exam Narrative GENERAL: Awake, alert, pleasant 47-year-old female appears her stated age and is in no acute respiratory distress. SKIN: Focused skin assessment warm/dry. HEAD: Atraumatic. Normocephalic. EYES: Pupils equal and round. No scleral icterus. No injection or drainage. ENT: No nasal bleeding or discharge. Mucous membranes pink and moist. NECK: Trachea midline. No JVD. CARDIOVASCULAR: Regular rate and rhythm. No murmur appreciated. RESPIRATORY: No accessory muscle use. Clear to auscultation. Breath sounds equal bilaterally. GASTROINTESTINAL: Abdomen soft, tender palpation epigastrium and right upper quadrant. Mild guarding. No rigidity. MUSCULOSKELETAL: No obvious deformities. No clubbing. No cyanosis. No edema. NEUROLOGICAL: Awake and alert. No obvious cranial nerve deficits. Motor grossly within normal limits. Normal speech. PSYCHIATRIC: Appropriate mood and affect; insight and judgment normal. Data Data Last Documented VS Vital Signs Date Time Temp Pulse Resp B/P (MAP) Pulse Ox O2 Delivery O2 Flow Rate FiO2 10/29/17 12:44 74 16 137/78 (97) 97 Room Air 10/29/17 11:33 98.5 Orders Orders Complete Blood Count With Diff (10/29/17 11:02) Comprehensive Metabolic Panel (10/29/17 11:02) Lipase (10/29/17 11:02) Lactic Acid (10/29/17 11:02) Urinalysis - C+S If Indicated (10/29/17 11:02) Iv Access Insert/Monitor (10/29/17 11:02) Ecg Monitoring (10/29/17 11:02) Oximetry (10/29/17 11:02) Morphine Inj (Morphine Inj) (10/29/17 11:15) Sodium Chlor 0.9% 1000 Ml Inj (Ns 1000 M (10/29/17 11:02) Sodium Chloride 0.9% Flush (Ns Flush) (10/29/17 11:15) Famotidine Inj (Pepcid Inj) (10/29/17 11:15) Dicyclomine Inj (Bentyl Inj) (10/29/17 11:15) Ed Urine Pregnancytest Poc (10/29/17 11:02) Ondansetron Odt (Zofran Odt) (10/29/17 11:15) Electrocardiogram (10/29/17 ) Ct Abd/Pel W Iv Contrast(Rout) (10/29/17 ) Sodium Chloride 0.9% Flush (Ns Flush) (10/29/17 12:45) Al-Mag Hy-Si 40-40-4 Mg/Ml Liq (Mag-Al P (10/29/17 12:45) Lidocaine 2% Viscous (Xylocaine 2% Visco (10/29/17 12:45) Iohexol 350 Inj (Omnipaque 350 Inj) (10/29/17 13:20) Morphine Inj (Morphine Inj) (10/29/17 13:45) Labs Laboratory Tests Test 10/29/17 11:25 10/29/17 12:20 White Blood Count 7.4 TH/MM3 Red Blood Count 4.46 MIL/MM3 Hemoglobin 13.6 GM/DL Hematocrit 40.1 % Mean Corpuscular Volume 89.9 FL Mean Corpuscular Hemoglobin 30.6 PG Mean Corpuscular Hemoglobin Concent 34.0 % Red Cell Distribution Width 13.7 % Platelet Count 220 TH/MM3 Mean Platelet Volume 8.0 FL Neutrophils (%) (Auto) 70.7 % Lymphocytes (%) (Auto) 12.9 % Monocytes (%) (Auto) 9.5 % Eosinophils (%) (Auto) 6.7 % Basophils (%) (Auto) 0.2 % Neutrophils # (Auto) 5.2 TH/MM3 Lymphocytes # (Auto) 1.0 TH/MM3 Monocytes # (Auto) 0.7 TH/MM3 Eosinophils # (Auto) 0.5 TH/MM3 Basophils # (Auto) 0.0 TH/MM3 CBC Comment DIFF FINAL Differential Comment Blood Urea Nitrogen 10 MG/DL Creatinine 0.87 MG/DL Random Glucose 96 MG/DL Total Protein 7.5 GM/DL Albumin 3.7 GM/DL Calcium Level 9.0 MG/DL Alkaline Phosphatase 54 U/L Aspartate Amino Transf (AST/SGOT) 12 U/L Alanine Aminotransferase (ALT/SGPT) 18 U/L Total Bilirubin 0.4 MG/DL Sodium Level 143 MEQ/L Potassium Level 3.2 MEQ/L Chloride Level 109 MEQ/L Carbon Dioxide Level 24.5 MEQ/L Anion Gap 10 MEQ/L Estimat Glomerular Filtration Rate 85 ML/MIN Lactic Acid Level 1.1 mmol/L Lipase 83 U/L Urine Color YELLOW Urine Turbidity CLEAR Urine pH 6.5 Urine Specific [place] 1.016 Urine Protein NEG mg/dL Urine Glucose (UA) NEG mg/dL Urine Ketones NEG mg/dL Urine Occult Blood NEG Urine Nitrite NEG Urine Bilirubin NEG Urine Urobilinogen LESS THAN 2.0 MG/DL Urine Leukocyte Esterase NEG Urine RBC LESS THAN 1 /hpf Urine WBC LESS THAN 1 /hpf Urine Squamous Epithelial Cells 4 /hpf Urine Mucus FEW /lpf Microscopic Urinalysis Comment CULT NOT INDICATED MDM Medical Decision Making Medical Screen Exam Complete: Yes Emergency Medical Condition: Yes Medical Record Reviewed: Yes Interpretation(s) EKG reveals normal sinus rhythm with a rate of 71. No ischemic changes or ectopy noted. Laboratory Tests Test 10/29/17 11:25 10/29/17 12:20 White Blood Count 7.4 TH/MM3 Red Blood Count 4.46 MIL/MM3 Hemoglobin 13.6 GM/DL Hematocrit 40.1 % Mean Corpuscular Volume 89.9 FL Mean Corpuscular Hemoglobin 30.6 PG Mean Corpuscular Hemoglobin Concent 34.0 % Red Cell Distribution Width 13.7 % Platelet Count 220 TH/MM3 Mean Platelet Volume 8.0 FL Neutrophils (%) (Auto) 70.7 % Lymphocytes (%) (Auto) 12.9 % Monocytes (%) (Auto) 9.5 % Eosinophils (%) (Auto) 6.7 % Basophils (%) (Auto) 0.2 % Neutrophils # (Auto) 5.2 TH/MM3 Lymphocytes # (Auto) 1.0 TH/MM3 Monocytes # (Auto) 0.7 TH/MM3 Eosinophils # (Auto) 0.5 TH/MM3 Basophils # (Auto) 0.0 TH/MM3 CBC Comment DIFF FINAL Differential Comment Blood Urea Nitrogen 10 MG/DL Creatinine 0.87 MG/DL Random Glucose 96 MG/DL Total Protein 7.5 GM/DL Albumin 3.7 GM/DL Calcium Level 9.0 MG/DL Alkaline Phosphatase 54 U/L Aspartate Amino Transf (AST/SGOT) 12 U/L Alanine Aminotransferase (ALT/SGPT) 18 U/L Total Bilirubin 0.4 MG/DL Sodium Level 143 MEQ/L Potassium Level 3.2 MEQ/L Chloride Level 109 MEQ/L Carbon Dioxide Level 24.5 MEQ/L Anion Gap 10 MEQ/L Estimat Glomerular Filtration Rate 85 ML/MIN Lactic Acid Level 1.1 mmol/L Lipase 83 U/L Urine Color YELLOW Urine Turbidity CLEAR Urine pH 6.5 Urine Specific [place] 1.016 Urine Protein NEG mg/dL Urine Glucose (UA) NEG mg/dL Urine Ketones NEG mg/dL Urine Occult Blood NEG Urine Nitrite NEG Urine Bilirubin NEG Urine Urobilinogen LESS THAN 2.0 MG/DL Urine Leukocyte Esterase NEG Urine RBC LESS THAN 1 /hpf Urine WBC LESS THAN 1 /hpf Urine Squamous Epithelial Cells 4 /hpf Urine Mucus FEW /lpf Microscopic Urinalysis Comment CULT NOT INDICATED Last Impressions Abdomen/Pelvis CT 10/29/17 0000 Signed Impressions: CONCLUSION: 1. Abnormal loops of small intestine which demonstrates circumferential wall t hickening, mild mesenteric hyperemia and trace free fluid. 2. There is abnormal circumferential gastric wall thickening and mild relative luminal narrowing seen of the body of the stomach. Inflammatory bowel disease would be the leading consideration. 3. Uterine fibroids. Differential Diagnosis Differential diagnosis includes pancreatitis, peptic ulcer disease, gastritis, cholecystitis, choledocholithiasis, symptomatic cholelithiasis, AAA, perforated viscus, diverticulitis, GERD. Narrative Course IV was established, labs are drawn and sent, and the patient was placed on cardiac telemetry monitoring and continuous pulse oximetry monitoring. EKG was ordered and interpreted. The patient was administered Pepcid, morphine, Bentyl , Zofran, and IV fluids. The patient's white count and lactic acid are unremarkable. However, the patient had persistent pain, therefore, was administered a second dose of morphine [address] of the abdomen and pelvis was then performed revealing abnormal wall thickening of small bowel and mesenteric hyperemia with abnormal thickening of the stomach and narrowing of the lumen, consideration includes inflammatory bowel disease. The patient denies any known history of Crohn's disease or ulcerative colitis, symptoms are acute. The patient may benefit from observation gastroenterology consultation, she may benefit from endoscopy. The patient continued to have pain, therefore, was administered another dose of pain medication and IV fluids. The patient will be admitted to the on-call medical service. Physician Communication Physician Communication The on-call medical service was paged for 23 hour observation. I discussed the patient with the residents who agree with admission. Diagnosis Primary Impression: Intractable abdominal pain Admitting Information Admitting Physician Requests: Observation Condition: Stable Jeb Medrano MD Oct 29, 2017 11:09
[2017-10-29] MEDS ORDERED: FAMOTIDINE 20 MG/2 ML VIAL IV PUSH ONE (11:15)
[2017-10-29] MEDS ORDERED: SODIUM CHLORIDE 0.9% FLUSH 10 ML FLUSH IV FLUSH PRN ×3 (11:15→14:30)
[2017-10-29] MEDS ORDERED: ONDANSETRON ODT 4 MG TAB PO ONE (11:15)
[2017-10-29] MEDS ORDERED: MORPHINE SULFATE 4 MG/ML INJ IV PUSH ONE ×2 (11:15→13:45)
[2017-10-29] MEDS ORDERED: DICYCLOMINE HCL 20 MG/2 ML VIAL IM ONE (11:15)
[2017-10-29] MEDS ORDERED: MIRTA15 PO (11:19)
[2017-10-29] MEDS ORDERED: LISI40TA PO (11:19)
[2017-10-29] MEDS ORDERED: DIVA250T3 PO (11:19)
[2017-10-29] MEDS ORDERED: VALA500T PO (11:19)
[2017-10-29] MEDS ORDERED: ACAM1TAB5 PO (11:19)
[2017-10-29] MEDS ORDERED: THERTAB17 PO (11:19)
[2017-10-29] MEDS ORDERED: FERR324T4 PO (11:19)
[2017-10-29] MEDS ORDERED: FOLI400T PO (11:19)
[2017-10-29] MEDS ORDERED: TRAZ50TA12 PO (11:19)
[2017-10-29] MEDS ORDERED: RISP4TAB2 PO (11:19)
[2017-10-29] MEDS ORDERED: SYMB160A INH (11:19)
[2017-10-29] MEDS ORDERED: VITA100T54 PO (11:19)
[2017-10-29] MEDS ORDERED: PRAZ2CAP PO (11:19)
[2017-10-29] MEDS ORDERED: SERT-129 PO (11:19)
[2017-10-29 11:51] LABS: AUTOMATED NEUTROPHIL # 5.2 TH/MM3 (1.8-7.7); BASOPHIL % 0.2 % (0.0-2.0); EOSINOPHIL # 0.5 TH/MM3 (0-0.4); EOSINOPHIL % 6.7 % (0.0-4.0); HEMATOCRIT 40.1 % (35.0-46.0); HEMOGLOBIN 13.6 GM/DL (11.6-15.3); LYMPH % 12.9 % (9.0-44.0); MEAN CELL VOLUME 89.9 FL (80.0-100.0); MEAN CORPUSCULAR HEMOGLOBIN 30.6 PG (27.0-34.0); MONO % 9.5 % (0.0-8.0); MONOCYTE # 0.7 TH/MM3 (0-0.9); NEUT % 70.7 % (16.0-70.0); PLATELET COUNT 220 TH/MM3 (150-450); RED BLOOD COUNT 4.46 MIL/MM3 (4.00-5.30); RED CELL DISTRIBUTION WIDTH 13.7 % (11.6-17.2); WHITE BLOOD COUNT 7.4 TH/MM3 (4.0-11.0)
[2017-10-29 12:14] LABS: ALBUMIN 3.7 GM/DL (3.4-5.0); ALT (GPT) 18 U/L (10-53); AST (GOT) 12 U/L (15-37); BICARBONATE 24.5 MEQ/L (21.0-32.0); BLOOD UREA NITROGEN 10 MG/DL (7-18); CHLORIDE 109 MEQ/L (98-107); CREATININE 0.87 MG/DL (0.50-1.00); GLOMERULAR FILTRATION RATE 85 ML/MIN (>89); GLUCOSE,RANDOM 96 MG/DL (74-106); SODIUM (NA) 143 MEQ/L (136-145)
[2017-10-29 12:16] LABS: ALKALINE PHOSPHATASE 54 U/L (45-117); TOTAL BILIRUBIN ADULT 0.4 MG/DL (0.2-1.0); TOTAL PROTEIN 7.5 GM/DL (6.4-8.2)
[2017-10-29] MEDS ORDERED: LIDOCAINE VISCOUS 2% SOLN 15 ML UDC PO ONE (12:45)
[2017-10-29] MEDS ORDERED: ALUMINUM/MAGNESIUM/SIMETH 30 ML CUP PO ONE (12:45)
[2017-10-29 12:50] LABS: BILIRUBIN, URINE NEG (NEG); BLOOD, URINE NEG (NEG); GLUCOSE,URINE NEG (NEG); KETONE, URINE NEG (NEG); MUCUS URINE FEW /lpf (OCC); NITRITE,URINE NEG (NEG); PH, URINE 6.5 (5.0-8.5); SQUAMOUS EPITHELIAL CELL URINE 4 /hpf (0-5); URINE COLOR YELLOW (YELLW/STRAW); URINE LEUKOCYTE ESTERASE NEG (NEG)
[2017-10-29] MEDS ORDERED: IOHEXOL 350 MG/ML 10 ML VIAL (for RAD DIAG) IVCONTRAST ONE (13:20)
--- NOTE | 2017-10-29 13:35 | RADRPT ---
EXAM DATE: 10/29/2017 1:28 PM EDT AGE/SEX: 47 years / Female INDICATIONS: Upper abdomen pain for two days. CLINICAL DATA: This is the patient's initial encounter. Patient reports that signs and symptoms have been present for 2 days and indicates a pain score of 8/10. MEDICAL/SURGICAL HISTORY: Gastroesophageal reflux disease. Hypertension. Tubal ligation. ORAL CONTRAST: No oral contrast ingested. RADIATION DOSE: 6.64 CTDI (mGy) COMPARISON: No prior exams available for comparison. TECHNIQUE: Multiple contiguous axial images were obtained through the abdomen and pelvis following b olus infusion of 93 ml Omnipaque 350 (iohexol) nonionic water-soluble contrast as a single exam dos e. No oral contrast ingested. Using automated exposure control and adjustment of the mA and/or kV ac cording to patient size, the radiation dose was kept as low as reasonably achievable to obtain optima l diagnostic quality images. FINDINGS: Lung bases are clear. Osseous structures are intact. No pleural or pericardial effusions are identifi ed. Liver, gallbladder, kidneys, adrenals, spleen, pancreas, urinary bladder and left adnexa are unre markable. There is a small amount of free fluid in the pelvis. Right ovary not well visualized. There is a calcified fundal fibroid measuring 4 cm. There is also a heterogeneous fibroid left mid body me asuring 3 cm. There is a simple cyst at the lower pole of the right kidney measuring 1.7 cm. The appendix is normal in appearance. There is abnormal circumferential bowel wall thickening involvi ng the ileum as well as loops of jejunum in the left midabdomen and right lower quadrant. These are m ildly prominent in caliber. There is no adenopathy or aneurysm. There is also apparent circumferentia l gastric wall thickening of the mid body of the stomach. CONCLUSION: 1. Abnormal loops of small intestine which demonstrates circumferential wall thickening, mild mesent analy hyperemia and trace free fluid. 2. There is abnormal circumferential gastric wall thickening and mild relative luminal narrowing see n of the body of the stomach. Inflammatory bowel disease would be the leading consideration. 3. Uterine fibroids. Electronically signed by: Phi Alba MD 10/29/2017 1:34 PM EDT
--- NOTE | 2017-10-29 14:07 | HHI.HP ---
[facility] Service Family Medicine Primary Care Physician [facility] Admission Diagnosis Intractable abdominal pain, gastric wall thickening per CT Diagnoses: International Travel<30 Days: No Contact w/Intl Traveler<30days: No Known Affected Area: No History of Present Illness Patient is a 47 y/o F w/PMHx of GERD presenting w/severe, 8/10 abdominal pain. [facility]. Describes pain across the upper abdomen that occurred suddenly this morning. Laying better makes it better, sitting up makes it worse. Did not take anything to make it better. States she has not been able to eat or drink anything due to the pain. No recent hx of NSAIDs. Denies any other associated symptoms of vomiting, nausea, diarrhea, bloody/black stool, or chest pain. States she was diagnosed w/GERD in the past, takes Pepcid as one of her meds. Endorses increased thirst and urinary frequency; otherwise no other issues. Has been hospitalized in the past for "psych issues." Takes medications for schizophrenia, seizures, and depression. No recent changes to her medications have occurred. Is sexually active, denies pain w/activity, abnormal bleeding, or vaginal discharge. Was diagnosed and treated for BV 3 months ago. Has a hx of chlamydia that occurred 16 years ago. No recent episodes of PID. No OB or Veneer Clipper procedures other than LEEP. She is a , all deliveries were vaginal. Has hx of miscarriage and . No recent positive PAPs. test negative in the ED. Given Zofran, Pepcid, Bentyl, and Morphine x1 in the ED. States pain has continued, no prior similar episodes or hospitalizations. Review of Systems Constitutional: COMPLAINS OF: Change in appetite (due to pain), DENIES: Fever, Weight loss Endocrine: COMPLAINS OF: Polydipsia Eyes: DENIES: Eye pain, Vision loss Ears, nose, mouth, throat: DENIES: Hearing loss Respiratory: DENIES: Cough, Shortness of breath Cardiovascular: DENIES: Chest pain, Palpitations Gastrointestinal: DENIES: Abdominal pain, Black stools, Bloody stools, Diarrhea Genitourinary: DENIES: Abnormal vaginal bleeding, Dyspareunia, Urinary frequency, Urinary incontinence, Vaginal discharge Musculoskeletal: DENIES: Joint pain Integumentary: DENIES: Rash Neurologic: DENIES: Localized weakness, Paresthesias Past Family Social History Past Medical History Asthma HTN Depression Schizophrenia Bipolar 1&2 Schizoaffective Past Surgical History LEEP Reported Medications Reported Meds & Active Scripts Active Amlodipine (Amlodipine Besylate) 10 Mg Tab 10 Mg PO DAILY Ventolin Hfa 18 GM Inh (Albuterol Sulfate) 90 Mcg/Act Aer 1 Puff INH Q4H PRN Hydrochlorothiazide 25 Mg Tab 25 Mg PO DAILY Reported Folic Acid 0.4 Mg Tab 1 Mg PO DAILY Prazosin (Prazosin HCl) 2 Mg Cap 2 Mg PO HS Mirtazapine 15 Mg Tab 15 Mg PO HS Risperidone 4 Mg Tab 2 Mg PO DAILY Lisinopril 40 Mg Tab 40 Mg PO HS Valacyclovir (Valacyclovir HCl) 500 Mg Tab 500 Mg PO DAILY Thera-M (Multiple Vitamins W/ Minerals) 1 Tab 1 Tab PO DAILT Trazodone (Trazodone HCl) 50 Mg Tab 50 Mg PO HS Ferrous Sulfate DR (Ferrous Sulfate) 324 Mg Tabdr 324 Mg PO DAILY Sertraline (Sertraline HCl) 100 Mg Tab 50 Mg PO DAILY Vitamin B-1 (Thiamine HCl) 100 Mg Tab 100 Mg PO DAILY Divalproex ER (Divalproex Sodium) 250 Mg Lucero 250 Mg PO HS Symbicort Inh (Budesonide/Formoterol Fumarate) 160-4.5 Mcg/Act Aero 2 Puff INH Q12HR Allergies: Coded Allergies: Sulfa (Sulfonamide Antibiotics) (Unverified Allergy, Severe, Hives, ) Family History Mom: hx of ovarian cancer Dad: none No fam hx of IBD. Social History 15 pack year smoking history Drinks 4 beers q2-3 days Daily cocaine use (smoking) No other drug use Physical Exam Vital Signs Vital Signs Date Time Temp Pulse Resp B/P (MAP) Pulse Ox O2 Delivery O2 Flow Rate FiO2 10/29/17 12:44 74 16 137/78 (97) 97 Room Air 10/29/17 11:33 98.5 77 19 165/108 (127) 98 Room Air 10/29/17 11:07 19 10/29/17 11:06 77 19 165/108 (127) 100 Room Air Physical Exam GENERAL: This is a thin, female curled in bed appearing drowsy. Intermittently appears in significant pain, which appears to comes and goes. SKIN: Cool and dry. EYES: Pupils equal round and reactive. Extraocular motions intact. No scleral icterus. No injection or drainage. ENT: Uvula midline. Airway patent. Mucous membranes dry. NECK: Trachea midline. No JVD or lymphadenopathy. CARDIOVASCULAR: Regular rate and rhythm without murmurs, gallops, or rubs. RESPIRATORY: Clear to auscultation. Breath sounds equal bilaterally. No wheezes , rales, or rhonchi. GASTROINTESTINAL: Abdomen soft. Diffusely tender to palpation but more significant in the upper quadrants. No palpable masses. No guarding or tenderness w/light touch. No crepitus noted. MUSCULOSKELETAL: Extremities without clubbing, cyanosis, or edema. NEUROLOGICAL: Awake and alert. No focal deficits. Normal range of motion. Normal speech. Laboratory Laboratory Tests Test 10/29/17 11:25 10/29/17 12:20 White Blood Count 7.4 Red Blood Count 4.46 Hemoglobin 13.6 Hematocrit 40.1 Mean Corpuscular Volume 89.9 Mean Corpuscular Hemoglobin 30.6 Mean Corpuscular Hemoglobin Concent 34.0 Red Cell Distribution Width 13.7 Platelet Count 220 Mean Platelet Volume 8.0 Neutrophils (%) (Auto) 70.7 Lymphocytes (%) (Auto) 12.9 Monocytes (%) (Auto) 9.5 Eosinophils (%) (Auto) 6.7 Basophils (%) (Auto) 0.2 Neutrophils # (Auto) 5.2 Lymphocytes # (Auto) 1.0 Monocytes # (Auto) 0.7 Eosinophils # (Auto) 0.5 Basophils # (Auto) 0.0 CBC Comment DIFF FINAL Differential Comment Blood Urea Nitrogen 10 Creatinine 0.87 Random Glucose 96 Total Protein 7.5 Albumin 3.7 Calcium Level 9.0 Alkaline Phosphatase 54 Aspartate Amino Transf (AST/SGOT) 12 Alanine Aminotransferase (ALT/SGPT) 18 Total Bilirubin 0.4 Sodium Level 143 Potassium Level 3.2 Chloride Level 109 Carbon Dioxide Level 24.5 Anion Gap 10 Estimat Glomerular Filtration Rate 85 Lactic Acid Level 1.1 Lipase 83 Urine Color YELLOW Urine Turbidity CLEAR Urine pH 6.5 Urine Specific [place] 1.016 Urine Protein NEG Urine Glucose (UA) NEG Urine Ketones NEG Urine Occult Blood NEG Urine Nitrite NEG Urine Bilirubin NEG Urine Urobilinogen LESS THAN 2.0 Urine Leukocyte Esterase NEG Urine RBC LESS THAN 1 Urine WBC LESS THAN 1 Urine Squamous Epithelial Cells 4 Urine Mucus FEW Microscopic Urinalysis Comment CULT NOT INDICATED Result Diagram: 10/29/17 1125 10/29/17 1125 Imaging Last Impressions Abdomen/Pelvis CT 10/29/17 0000 Signed Impressions: CONCLUSION: 1. Abnormal loops of small intestine which demonstrates circumferential wall t hickening, mild mesenteric hyperemia and trace free fluid. 2. There is abnormal circumferential gastric wall thickening and mild relative luminal narrowing seen of the body of the stomach. Inflammatory bowel disease would be the leading consideration. 3. Uterine fibroids. Course PER ED note: "V was established, labs are drawn and sent, and the patient was placed on cardiac telemetry monitoring and continuous pulse oximetry monitoring. EKG was ordered and interpreted. The patient was administered Pepcid, morphine, Bentyl, Zofran, and IV fluids. The patient's white count and lactic acid are unremarkable. However, the patient had persistent pain, therefore, was administered a second dose of morphine [address] of the abdomen and pelvis was then performed revealing abnormal wall thickening of small bowel and mesenteric hyperemia with abnormal thickening of the stomach and narrowing of the lumen, consideration includes inflammatory bowel disease. The patient denies any known history of Crohn's disease or ulcerative colitis, symptoms are acute. The patient may benefit from observation gastroenterology consultation, she may benefit from endoscopy. The patient continued to have pain, therefore, was administered another dose of pain medication and IV fluids. " Caprini VTE Risk Assessment Caprini VTE Risk Assessment: No/Low Risk (score <= 1) Assessment and Plan Assessment and Plan 47 y/o F w/hx of HTN presenting w/intractable abdominal pain. CT abdomen shows gastric and small intestinal wall thickening. Low suspicion for peritonitis at this time. Lactic acid is low, which makes ischemic colitis less likely. Differential: Cocaine induced ulcer v PUD 2/2 GERD v malignancy v IBD. Make NPO , place on IVF, and consult GI at this time. Code Status FULL Problem List: (1) Intractable abdominal pain ICD Codes: R10.9 - Unspecified abdominal pain Status: Acute Plan: GI consult NPO Order ESR to assess for IBD, CRP for perforation Maintenance fluids Tylenol, percocet, and morphine PRN for pain Reglan PRN for nausea/vomiting UDS Protonix 40 mg daily (2) Hypertension ICD Codes: I10 - Essential (primary) hypertension Plan: Home meds: lisinopril, amlodipine, prazosin, HCTZ Hold HCTZ and prazosin for now (3) Schizoaffective disorder ICD Codes: F25.9 - Schizoaffective disorder Status: Acute Plan: Con't risperidone (4) Cocaine abuse ICD Codes: F14.10 - Cocaine abuse Status: Acute Plan: Lactic acid wnl UDS (5) Depression ICD Codes: F32.9 - Major depressive disorder, single episode, unspecified Status: Chronic Plan: Con't home mirtazapine, sertraline, and trazodone (6) History of seizure ICD Codes: Z87.898 - Personal history of other specified conditions Plan: Con't divalproex ER (7) HSV-1 (herpes simplex virus 1) infection ICD Codes: B00.9 - Herpesviral infection, unspecified Plan: Con't home valacyclovir (8) FEN Plan: Fluids: maintenance Electrolytes: replaced potassium 30 meq x1 Nutrition: NPO DVT prophy: SCDs GI prophy: Protonix 40 mg daily IV Problem Qualifiers (1) Depression: Qualified Codes: F32.9 - Major depressive disorder, single episode, unspecified Piedad Mitchell MD R1 Oct 29, 2017 14:07
[2017-10-29] MEDS ORDERED: SENNOSIDES 8.6 MG TAB PO PRN (14:30)
[2017-10-29] MEDS ORDERED: MAGNESIUM HYDROXIDE SUSP 30 ML CUP PO PRN (14:30)
[2017-10-29] MEDS ORDERED: PROCHLORPERAZINE 25 MG SUPP RECTAL PRN (14:30)
[2017-10-29] MEDS ORDERED: NALOXONE HCL 0.4 MG/ML AMP IV PUSH PRN ×2 (14:30→14:45)
[2017-10-29] MEDS ORDERED: BISACODYL 10 MG SUPP RECTAL PRN (14:30)
[2017-10-29] MEDS ORDERED: LACTULOSE SYRUP 20 GM/30 ML CUP PO PRN (14:30)
[2017-10-29] MEDS ORDERED: MORPHINE SULFATE 2 MG/ML SYRINGE IV PUSH PRN ×2 (14:45)
[2017-10-29] MEDS ORDERED: ACETAMINOPHEN 325 MG TAB PO PRN (14:45)
[2017-10-29] MEDS ORDERED: POTASSIUM CHLORIDE 10 MEQ CONTROLLED RELEASE TAB PO ONE (14:45)
[2017-10-29] MEDS ORDERED: METOCLOPRAMIDE HCL 10 MG/2 ML VIAL IV PUSH PRN (15:45)
[2017-10-29] MEDS: SERTRALINE HCL 50 MG TAB PO SCH (16:03)
[2017-10-29] MEDS: valACYclovir HCL 500 MG TAB PO SCH (16:58)
[2017-10-29] MEDS: risperiDONE 1 MG TAB PO SCH (16:58)
[2017-10-29] MEDS: NS + KCL 40 MEQ INJ 1,000 ML IV SCH (16:59)
[2017-10-29] MEDS: SODIUM CHLORIDE 0.9% FLUSH 10 ML FLUSH IV FLUSH SCH (21:00)
[2017-10-29] MEDS: traZODone HCL 50 MG TAB PO SCH (21:52)
[2017-10-29] MEDS: DIVALPROEX SODIUM E.R. 250 MG TAB PO SCH (21:52)
[2017-10-29] MEDS: LISINOPRIL 20 MG TAB PO SCH (21:53)
[2017-10-29] MEDS: MIRTAZAPINE 15 MG TAB PO SCH (21:53)
[2017-10-29] MEDS: BUDESONIDE-FORMOTEROL 160/4.5 MCG INHALER INH SCH (22:22)
[2017-10-30] MEDS: NS + KCL 40 MEQ INJ 1,000 ML IV SCH ×3 (03:48→22:30)
[2017-10-30 03:57] VITALS: BP 133/75; PULSE 103; RESP 17; TEMP 98.4; O2SAT 95
[2017-10-30 07:29] VITALS: BP 102/59; PULSE 72; RESP 16; TEMP 98.8; O2SAT 93
[2017-10-30 08:17] LABS: ALT (GPT) 16 U/L (10-53); AST (GOT) 11 U/L (15-37); BICARBONATE 21.6 MEQ/L (21.0-32.0); BLOOD UREA NITROGEN 6 MG/DL (7-18); CALCIUM 8.8 MG/DL (8.5-10.1); CHLORIDE 116 MEQ/L (98-107); CREATININE 0.89 MG/DL (0.50-1.00); GLOMERULAR FILTRATION RATE 83 ML/MIN (>89); GLUCOSE,RANDOM 79 MG/DL (74-106); SODIUM (NA) 145 MEQ/L (136-145)
[2017-10-30 08:26] LABS: ALKALINE PHOSPHATASE 41 U/L (45-117); TOTAL BILIRUBIN ADULT 0.3 MG/DL (0.2-1.0); TOTAL PROTEIN 6.3 GM/DL (6.4-8.2)
[2017-10-30] MEDS ORDERED: PANTOPRAZOLE SODIUM 40 MG VIAL IV PUSH SCH (09:00)
[2017-10-30] MEDS: BUDESONIDE-FORMOTEROL 160/4.5 MCG INHALER INH SCH ×2 (09:29→20:35)
[2017-10-30] MEDS: risperiDONE 1 MG TAB PO SCH (09:30)
[2017-10-30] MEDS: PANTOPRAZOLE SOD 40 MG DELAYED RELEASE TAB PO SCH (09:30)
[2017-10-30] MEDS: SERTRALINE HCL 50 MG TAB PO SCH (09:30)
[2017-10-30] MEDS: SODIUM CHLORIDE 0.9% FLUSH 10 ML FLUSH IV FLUSH SCH ×2 (09:30→20:35)
[2017-10-30 11:42] VITALS: BP 111/62; PULSE 68; RESP 16; TEMP 97.8; O2SAT 96
--- NOTE | 2017-10-30 11:47 | PD.CONS ---
HPI History of Present Illness This is a 47 year old F with PMH significant for asthma, HTN, depression, schizophrenia, bipolar disorder, and schizoaffective disorder who presented to the ER yesterday with complaints of severe abdominal pain that began suddenly yesterday morning. Describes pain as sharp, intermittent, located in her upper abdomen. Notices pain is worse when she sits down and improves some when she lies down. Has not tried any OTC medication for relief. Denies nausea, vomiting , constipation, diarrhea, blood in her stool, unintentional weight loss. States some acid reflux, takes Pepcid as needed. Denies ever having EGD or colonoscopy. Family history significant for paternal aunt with gastric cancer and mother with colon cancer. Pt reports ETOH, drinks 4 beers every 2 to three days. Smokes 1/2 pack to a pack of cigarettes a day. Also smokes cocaine. Denies NSAID use. (Kaya Houston) PFSH Past Medical History Asthma HTN Depression Schizophrenia Bipolar 1&2 Schizoaffective Past Surgical History LEEP (Kaya Houston) Coded Allergies: Sulfa (Sulfonamide Antibiotics) (Unverified Allergy, Severe, Hives, ) Social History ETOH- 4 beers every 2-3 days Smokes 1/2 pack to 1 pack per day of cigarettes (+) Cocaine use (Kaya Houston) Review of Systems Gastrointestinal: COMPLAINS OF: Abdominal pain, Heartburn, DENIES: Black stools , Bloody stools, Constipation, Diarrhea, Nausea, Vomiting, Difficulty Swallowing , Anorexia, Odynophagia, Swelling of Abdomen, Hematemesis (Kaya Houston) GI Exam Vitals I&O Vital Signs Date Time Temp Pulse Resp B/P (MAP) Pulse Ox O2 Delivery O2 Flow Rate FiO2 10/30/17 07:29 98.8 72 16 102/59 (73) 93 10/30/17 03:57 98.4 103 17 133/75 (94) 95 10/29/17 23:31 98.5 78 17 113/62 (79) 93 10/29/17 19:30 98.5 100 17 128/78 (95) 95 10/29/17 16:20 99.1 74 18 155/82 (106) 96 10/29/17 16:05 85 17 136/85 (102) 100 10/29/17 15:51 100.1 83 17 136/85 (102) 100 Room Air 10/29/17 12:44 74 16 137/78 (97) 97 Room Air I/O 10/29/17 10/29/17 10/29/17 10/30/17 10/30/17 10/30/17 07:00 15:00 23:00 07:00 15:00 23:00 Intake Total 1002 ml Balance 1002 ml Intake IV Total 1002 ml Imaging Last Impressions Abdomen/Pelvis CT 10/29/17 0000 Signed Impressions: CONCLUSION: 1. Abnormal loops of small intestine which demonstrates circumferential wall t hickening, mild mesenteric hyperemia and trace free fluid. 2. There is abnormal circumferential gastric wall thickening and mild relative luminal narrowing seen of the body of the stomach. Inflammatory bowel disease would be the leading consideration. 3. Uterine fibroids. Laboratory Test 10/29/17 12:20 10/30/17 05:54 Urine Color YELLOW Urine Turbidity CLEAR Urine pH 6.5 Urine Specific [place] 1.016 Urine Protein NEG mg/dL Urine Glucose (UA) NEG mg/dL Urine Ketones NEG mg/dL Urine Occult Blood NEG Urine Nitrite NEG Urine Bilirubin NEG Urine Urobilinogen LESS THAN 2.0 MG/DL Urine Leukocyte Esterase NEG Urine RBC LESS THAN 1 /hpf Urine WBC LESS THAN 1 /hpf Urine Squamous Epithelial Cells 4 /hpf Urine Mucus FEW /lpf Microscopic Urinalysis Comment CULT NOT INDICATED Urine Opiates Screen POS Urine Barbiturates Screen NEG Urine Amphetamines Screen NEG Urine Benzodiazepines Screen NEG Urine Cocaine Screen POS Urine Cannabinoids Screen NEG Blood Urea Nitrogen 6 MG/DL Creatinine 0.89 MG/DL Random Glucose 79 MG/DL Total Protein 6.3 GM/DL Albumin 3.0 GM/DL Calcium Level 8.8 MG/DL Alkaline Phosphatase 41 U/L Aspartate Amino Transf (AST/SGOT) 11 U/L Alanine Aminotransferase (ALT/SGPT) 16 U/L Total Bilirubin 0.3 MG/DL Sodium Level 145 MEQ/L Potassium Level 4.0 MEQ/L Chloride Level 116 MEQ/L Carbon Dioxide Level 21.6 MEQ/L Anion Gap 7 MEQ/L Estimat Glomerular Filtration Rate 83 ML/MIN Physical Examination HEENT: Normocephalic; atraumatic CHEST: Even/unlabored CARDIAC: RRR ABDOMEN: Soft, nondistended, nontender; bowel sounds active EXTREMITIES: No clubbing, cyanosis, or edema. SKIN: Normal; no rash; no jaundice. EMERGENCY NURSE: Lethargic (Kaya Houston) Assessment and Plan Plan Assessment: - Abdominal pain- upper abdomen, began yesterday, came on suddenly, intermittent, described as sharp, worse with sitting up and some improvement with lying down Pt denies fever, chills, nausea, vomiting, constipation, diarrhea, blood in stool, unintentional weight loss Family history, paternal aunt with gastric cancer and mother with colon cancer. Denies family history of UC or Crohns Pt denies previous EGD or colonoscopy ETOH- 4 beers every 2-3 days. Smokes 1/2 pack to a pack a day (+) cocaine use. Denies NSAIDs CT abdomen and pelvis W IV contrast (10/29) Abnormal loops of small intestine which demonstrates circumferential wall thickening, mild mesenteric hyperemia and trace free fluid. There is abnormal circumferential gastric wall thickening and mild relative luminal narrowing seen of the body of the stomach. Inflammatory bowel disease would be the leading consideration. Plan: EGD today Obtain consent Keep NPO Supportive care Further recommendations based on findings of above Pt has been seen and examined by myself and Dr. Landa and this note is written on his behalf (Kaya Houston) Physician Comments Seen with gemma Kirkpatrick as above. Consent for EGD today. Further recommendations to follow. Thank you for the consult. (Carla Landa MD) Kaya Houston Oct 30, 2017 11:47 Carla Landa MD Oct 30, 2017 12:51
--- NOTE | 2017-10-30 11:48 | HHI.FPPN ---
Subjective Remarks Patient seen, examined and discussed with the medicine team. This is a 47 yo female who presented with sudden onset of bilateral upper quadrant abdominal pain, 7-8:10 in severity. Pain is associated with anorexia but no nausea, vomiting, melena or hematochezia. Had taken Pepcid in the past for GERD. Also reported being thirsty and urinating more. She is a daily cocaine user. History of depression, schizophrenia, asthma and hypertension. Gets her medical care at the [facility]. This a.m. she reports the pain is "a little better" at 6:10. No vomiting, no stools. Pain worse when recumbent. No chest pain, no SOB. Objective Vitals Vital Signs Date Time Temp Pulse Resp B/P (MAP) Pulse Ox O2 Delivery O2 Flow Rate FiO2 10/30/17 07:29 98.8 72 16 102/59 (73) 93 10/30/17 03:57 98.4 103 17 133/75 (94) 95 10/29/17 23:31 98.5 78 17 113/62 (79) 93 10/29/17 19:30 98.5 100 17 128/78 (95) 95 10/29/17 16:20 99.1 74 18 155/82 (106) 96 10/29/17 16:05 85 17 136/85 (102) 100 10/29/17 15:51 100.1 83 17 136/85 (102) 100 Room Air 10/29/17 12:44 74 16 137/78 (97) 97 Room Air I/O 10/29/17 10/29/17 10/29/17 10/30/17 10/30/17 10/30/17 06:59 14:59 22:59 06:59 14:59 22:59 Intake Total 1002 ml Balance 1002 ml Intake IV Total 1002 ml Result Diagram: 10/29/17 1125 10/30/17 0554 Imaging Last Impressions Abdomen/Pelvis CT 10/29/17 0000 Signed Impressions: CONCLUSION: 1. Abnormal loops of small intestine which demonstrates circumferential wall t hickening, mild mesenteric hyperemia and trace free fluid. 2. There is abnormal circumferential gastric wall thickening and mild relative luminal narrowing seen of the body of the stomach. Inflammatory bowel disease would be the leading consideration. 3. Uterine fibroids. Objective Remarks O. CONSTITUTIONAL/GEN: normally nourished, in NAD. EYES: conjunctiva normal, PERRLA, EOMI. ENT: MM a bit dry NECK: supple LUNGS: clear A-P, respiratory effort is normal. CARDIOVASCULAR: RR without murmur or gallop. No significant edema. GI/ABD: BS +, tender in both upper quadrants, no guarding or rigidity. Tenderness less when neck flexed on chest. No skin changes. NEURO: No focal deficits. SKIN: color normal, no rashes noted. HEME/LYMPH: no bruising, petechia or significant adenopathy MUSC: back is normal in appearance. Extremities are normal in appearance. PSYCH/MENTAL STATUS: Alert and oriented x 3. A/P Assessment and Plan 47 y/o F w/hx of HTN presenting w/intractable abdominal pain. CT abdomen shows gastric and small intestinal wall thickening. Low suspicion for peritonitis at this time. Lactic acid is low, which makes ischemic colitis less likely. Differential: Cocaine induced ulcer v PUD 2/2 GERD v malignancy v IBD. Make NPO , place on IVF, and await GI evaluation. Attending Attestation Patient seen and examined. Case reviewed and discussed with the resident team. Agree with plan of care as discussed with me. Problem List: (1) Intractable abdominal pain ICD Codes: R10.9 - Unspecified abdominal pain Status: Acute Plan: GI consult NPO Maintenance fluids Tylenol, percocet, and morphine PRN for pain Reglan PRN for nausea/vomiting UDS Protonix 40 mg daily (2) Hypertension ICD Codes: I10 - Essential (primary) hypertension Status: Chronic Plan: Home meds: lisinopril, amlodipine, prazosin, HCTZ Hold HCTZ and prazosin for now (3) Schizoaffective disorder ICD Codes: F25.9 - Schizoaffective disorder Status: Chronic Plan: Con't risperidone (4) Cocaine abuse ICD Codes: F14.10 - Cocaine abuse Status: Chronic Plan: Lactic acid wnl UDS (5) Depression ICD Codes: F32.9 - Major depressive disorder, single episode, unspecified Status: Chronic Plan: Con't home mirtazapine, sertraline, and trazodone (6) History of seizure ICD Codes: Z87.898 - Personal history of other specified conditions Status: Chronic Plan: Con't divalproex ER (7) HSV-1 (herpes simplex virus 1) infection ICD Codes: B00.9 - Herpesviral infection, unspecified Status: Chronic Plan: Con't home valacyclovir (8) FEN Status: Acute Plan: Fluids: maintenance Electrolytes: replaced potassium 30 meq x1 Nutrition: NPO DVT prophy: SCDs GI prophy: Protonix 40 mg daily IV Problem Qualifiers (1) Depression: Qualified Codes: F32.9 - Major depressive disorder, single episode, unspecified Jyothi Suárez MD Oct 30, 2017 11:48
[2017-10-30] MEDS ORDERED: PROPOFOL 200 MG/20 ML AMP IV ONE (12:00)
[2017-10-30] MEDS ORDERED: LIDOCAINE HCL 1% PF 5 ML SYRINGE OTHER ONE (12:00)
--- NOTE | 2017-10-30 14:37 | GIPROC ---
[facility] [address] [facility]. [facility], [id number] EGD PROCEDURE REPORT EXAM DATE: 10/30/2017 PATIENT NAME: Edith Bustamante MR #: [id number] BIRTHDATE: 1970 ATTENDING: Carla Landa MD ORDER #: [id number] CREW FOREMAN: Amanda Harris and Kayleen Fung STATUS: inpatient INDICATIONS: The patient is a 47 yr old female here for an EGD due to anemia and abnormal CT of the GI tract PROCEDURE PERFORMED: EGD w/ biopsy MEDICATIONS: None and Per Anesthesia. TOPICAL ANESTHETIC: none CONSENT: The patient understands the risks and benefits of the procedure and understands that these risks include, but are not limited to: sedation, allergic reaction, infection, perforation and/or bleeding. Alternative means of evaluation and treatment include, among others: physical exam, x-rays, and/or surgical intervention. The patient elects to proceed with this endoscopic procedure. medical equipment was checked for proper function. Hand hygiene and appropriate measures for infection prevention was taken. After the risks, benefits and alternatives of the procedure were thoroughly explained, Informed consent was verified, confirmed and timeout was successfully executed by the treatment team. The patient was anesthetized with topical anesthesia and the Pentax EG-[id number] endoscope was introduced through the mouth and advanced to the second portion of the duodenum. Retroflexion was performed and was normal The gastroscope was then slowly withdrawn and removed. ESOPHAGUS: The mucosa of the esophagus appeared normal. STOMACH: A large non-bleeding, irregular shaped and deep ulcer with surrounding edema and a red spot was found in the gastric body. Biopsies were taken at edge of the ulcer and at the center of the ulcer. There was mild gastritis in the gastric antrum. DUODENUM: The duodenal mucosa appeared normal in the duodenal bulb and 2nd part duodenum. ADVERSE EVENTS: There were no complications. IMPRESSIONS: 1. The esophagus appeared normal 2. Large ulcer was found in the gastric body; biopsies were taken 3. Normal duodenal mucosa in the duodenal bulb and 2nd part duodenum RECOMMENDATIONS: 1. Await biopsy results. Biopsy results will not be ready for 7-10 days. If you don't hear from us in two weeks, call our office for biopsy results. 2. Continue PPI PATIENT CONDITION: stable DISPOSITION: Observation REPEAT EXAM: NONE Carla Landa MD eSigned: Caral Landa MD 10/30/2017 2:36 PM cc: PATIENT NAME: Edith Bustamante MR#: [id number]
--- NOTE | 2017-10-30 14:57 | EKG ---
Date Performed: 10/29/2017 Time Performed: 11:18:08 PTAGE: 47 years EKG: Sinus rhythm NORMAL ECG Since the PREVIOUS TRACING , no significant change noted PREVIOUS TRACIN03/27/2017 @07.41 DOCTOR: Shahzad Saldivar Interpretating Date/Time 10/30/2017 14:53:38
[2017-10-30 15:37] VITALS: BP 144/87; PULSE 64; RESP 16; TEMP 97.9; O2SAT 98
[2017-10-30] MEDS: oxyCODONE/ACETAMINOPHEN 5 MG/325 MG TAB PO PRN ×2 (15:48→20:40)
[2017-10-30] MEDS: valACYclovir HCL 500 MG TAB PO SCH (15:48)
[2017-10-30] MEDS ORDERED: DO NOT ADM ANY ANTICOAGULANT DRUGS PRN (17:30)
[2017-10-30 19:32] VITALS: BP 118/57; PULSE 76; RESP 16; TEMP 98.4; O2SAT 96
[2017-10-30] MEDS: MIRTAZAPINE 15 MG TAB PO SCH (20:35)
[2017-10-30] MEDS: traZODone HCL 50 MG TAB PO SCH (20:36)
[2017-10-30] MEDS: LISINOPRIL 20 MG TAB PO SCH (20:36)
[2017-10-30] MEDS: DIVALPROEX SODIUM E.R. 250 MG TAB PO SCH (20:38)
[2017-10-30 23:56] VITALS: BP 122/65; PULSE 65; RESP 16; TEMP 98.5; O2SAT 97
[2017-10-31 04:29] VITALS: BP 113/67; PULSE 60; RESP 16; TEMP 98.2; O2SAT 99
[2017-10-31 08:03] VITALS: BP 123/76; PULSE 60; RESP 16; TEMP 98.3; O2SAT 98
[2017-10-31] MEDS ORDERED: OMEP20TA93 PO (09:18)
--- NOTE | 2017-10-31 09:19 | HHI.DCPOC ---
Discharge Care Plan Diagnosis: (1) Peptic ulcer (2) Cocaine abuse (3) Schizoaffective disorder Goals to Promote Your Health * To prevent worsening of your condition and complications * To maintain your health at the optimal level Directions to Meet Your Goals Take your medications as prescribed Follow your dietary instruction Follow activity as directed Keep your appointments as scheduled Take your immunizations and boosters as scheduled If your symptoms worsen call your PCP, if no PCP go to Urgent Care Center or Emergency Room Smoking is Dangerous to Your Health. Avoid second hand smoke Call the 24-hour hour crisis hotline for domestic abuse at Hans Diggs MD R2 Oct 31, 2017 09:19
[2017-10-31] MEDS: PANTOPRAZOLE SOD 40 MG DELAYED RELEASE TAB PO SCH (09:47)
[2017-10-31] MEDS: risperiDONE 1 MG TAB PO SCH (09:47)
[2017-10-31] MEDS: SERTRALINE HCL 50 MG TAB PO SCH (09:47)
[2017-10-31] MEDS: BUDESONIDE-FORMOTEROL 160/4.5 MCG INHALER INH SCH (09:47)
[2017-10-31] MEDS: SODIUM CHLORIDE 0.9% FLUSH 10 ML FLUSH IV FLUSH SCH (09:48)
[2017-10-31] MEDS: oxyCODONE/ACETAMINOPHEN 5 MG/325 MG TAB PO PRN (09:53)
--- NOTE | 2017-10-31 10:34 | HHI.FPPN ---
Subjective Remarks Patient is feeling much better. Abdominal pain only with palpation. Vitals stable overnight. No melena or hematochezia. (Piedad Mitchell MD R1) Objective Vitals Vital Signs Date Time Temp Pulse Resp B/P (MAP) Pulse Ox O2 Delivery O2 Flow Rate FiO2 10/31/17 08:03 98.3 60 16 123/76 (92) 98 10/31/17 04:29 98.2 60 16 113/67 (82) 99 10/30/17 23:56 98.5 65 16 122/65 (84) 97 10/30/17 21:40 18 10/30/17 19:32 98.4 76 16 118/57 (77) 96 10/30/17 15:37 97.9 64 16 144/87 (106) 98 10/30/17 15:18 97.7 64 15 112/65 (81) 100 10/30/17 15:00 61 16 115/58 (77) 100 10/30/17 14:44 98.3 69 15 98/56 (70) 100 10/30/17 11:42 97.8 68 16 111/62 (78) 96 I/O 10/30/17 10/30/17 10/30/17 10/31/17 10/31/17 10/31/17 07:00 15:00 23:00 07:00 15:00 23:00 Intake Total 1002 ml 600 ml 2430 ml Output Total 0 ml Balance 1002 ml 600 ml 2430 ml Intake Oral 500 ml IV Total 1002 ml 1930 ml Other 600 ml Output Urine Total 0 ml # Voids 1 (Piedad Mitchell MD R1) Result Diagram: 10/29/17 1125 10/30/17 0554 Objective Remarks O. CONSTITUTIONAL/GEN: normally nourished, in NAD. EYES: EOMI. ENT: MM moist. LUNGS: clear A-P, respiratory effort is normal. CARDIOVASCULAR: RR without murmur or gallop. GI/ABD: BS +, nontender. No skin changes. MUSC: Extremities are normal in appearance. PSYCH/MENTAL STATUS: Alert and oriented x 3. (Piedad Mitchell MD R1) A/P Assessment and Plan 47 y/o F w/hx of HTN presenting w/intractable abdominal pain. S/p EGD 10/30 w/ findings of large gastric ulcer. Hemodynamically stable. DC w/PCP and GI f/u, continue PPI. Bx results in 1 week. Discharge Planning DC today (Piedad Mitchell MD R1) Attending Attestation Patient seen and examined. Case reviewed and discussed with the resident team. Agree with plan of care as discussed with me and documented in the resident note. (Jyothi Suárez MD) Problem List: (1) Peptic ulcer ICD Codes: K27.9 - Peptic ulcer, site unspecified, unspecified as acute or chronic, without hemorrhage or perforation Plan: EGD 10/31: 1. The esophagus appeared normal 2. Large ulcer was found in the gastric body; biopsies were taken 3. Normal duodenal mucosa in the duodenal bulb and 2nd part duodenum Tylenol PRN for pain Protonix 40 mg daily on D/C Appreciate GI recs, bx results in 1-2 wks. F/u outpatient. (2) Intractable abdominal pain ICD Codes: R10.9 - Unspecified abdominal pain Status: Resolved (3) Hypertension ICD Codes: I10 - Essential (primary) hypertension Status: Chronic Plan: Home meds: lisinopril, amlodipine, prazosin, HCTZ Hold HCTZ and prazosin for now (4) Schizoaffective disorder ICD Codes: F25.9 - Schizoaffective disorder Status: Chronic Plan: Con't risperidone (5) Cocaine abuse ICD Codes: F14.10 - Cocaine abuse Status: Chronic Plan: UDS + Counseled on cessation (6) Depression ICD Codes: F32.9 - Major depressive disorder, single episode, unspecified Status: Chronic Plan: Con't home mirtazapine, sertraline, and trazodone (7) History of seizure ICD Codes: Z87.898 - Personal history of other specified conditions Status: Chronic Plan: Con't divalproex ER (8) HSV-1 (herpes simplex virus 1) infection ICD Codes: B00.9 - Herpesviral infection, unspecified Status: Chronic Plan: Con't home valacyclovir (9) FEN Status: Acute Plan: Fluids: maintenance Electrolytes: replaced potassium 30 meq x1 Nutrition: NPO DVT prophy: SCDs GI prophy: Protonix 40 mg daily IV (Piedad Mitchell MD R1) Problem Qualifiers (1) Depression: Qualified Codes: F32.9 - Major depressive disorder, single episode, unspecified Abid,Piedad N MD R1 Oct 31, 2017 10:34 Jyothi Suárez MD Oct 31, 2017 14:48
[2017-10-31 11:56] VITALS: BP 109/68; PULSE 61; RESP 20; TEMP 98.4; O2SAT 97
--- NOTE | 2017-10-31 15:18 | HHI.GIFU ---
Subjective Remarks Pt resting in bed States feeling much better today Denies nausea, vomiting, abdominal pain Tolerating regular diet (Kaya Houston) Objective Vitals I&O Vital Signs Date Time Temp Pulse Resp B/P (MAP) Pulse Ox O2 Delivery O2 Flow Rate FiO2 10/31/17 11:56 98.4 61 20 109/68 (82) 97 10/31/17 11:10 18 10/31/17 08:03 98.3 60 16 123/76 (92) 98 10/31/17 04:29 98.2 60 16 113/67 (82) 99 10/30/17 23:56 98.5 65 16 122/65 (84) 97 10/30/17 19:32 98.4 76 16 118/57 (77) 96 10/30/17 15:37 97.9 64 16 144/87 (106) 98 10/30/17 15:18 97.7 64 15 112/65 (81) 100 I/O 10/30/17 10/30/17 10/30/17 10/31/17 10/31/17 10/31/17 07:00 15:00 23:00 07:00 15:00 23:00 Intake Total 1002 ml 600 ml 2430 ml 650 ml Output Total 0 ml Balance 1002 ml 600 ml 2430 ml 650 ml Intake Oral 500 ml IV Total 1002 ml 1930 ml 650 ml Other 600 ml Output Urine Total 0 ml # Voids 1 Imaging Last Impressions Abdomen/Pelvis CT 10/29/17 0000 Signed Impressions: CONCLUSION: 1. Abnormal loops of small intestine which demonstrates circumferential wall t hickening, mild mesenteric hyperemia and trace free fluid. 2. There is abnormal circumferential gastric wall thickening and mild relative luminal narrowing seen of the body of the stomach. Inflammatory bowel disease would be the leading consideration. 3. Uterine fibroids. Physical Exam HEENT: Normocephalic; atraumatic CHEST: Even/unlabored CARDIAC: RRR ABDOMEN: Soft, nondistended, nontender; bowel sounds active EXTREMITIES: No clubbing, cyanosis, or edema. SKIN: Normal; no rash; no jaundice. PERSONNEL CLERK: Alert and oriented times three. (Kaya Houston) Assessment and Plan Plan Assessment: - Abdominal pain- upper abdomen, began yesterday, came on suddenly, intermittent, described as sharp, worse with sitting up and some improvement with lying down Pt denies fever, chills, nausea, vomiting, constipation, diarrhea, blood in stool, unintentional weight loss Family history, paternal aunt with gastric cancer and mother with colon cancer. Denies family history of UC or Crohns Pt denies previous EGD or colonoscopy ETOH- 4 beers every 2-3 days. Smokes 1/2 pack to a pack a day (+) cocaine use. Denies NSAIDs CT abdomen and pelvis W IV contrast (10/29) Abnormal loops of small intestine which demonstrates circumferential wall thickening, mild mesenteric hyperemia and trace free fluid. There is abnormal circumferential gastric wall thickening and mild relative luminal narrowing seen of the body of the stomach. Inflammatory bowel disease would be the leading consideration. (10/31) S/P EGD yesterday, pt reports no continued abdominal pain. Denies nausea and vomiting. Tolerating regular diet. EGD --> Esophagus appeared normal. Large ulcer was found in the gastric body, biopsies taken. Normal duodenal mucosa in the duodenal bulb and 2nd part of the duodenum. Plan: EGD biopsy pending Avoid NSAIDs Continue Protonix OK to DC from a GI standpoint Have pt follow up with GI after DC Pt has been seen and examined by myself and Dr. Landa and this note is written on his behalf (Kaya Houston) Physician Comments As above. Will need out patient follow up for biopsy results. Please notify us if needed again. (Carla Landa MD) Kaya Houston Oct 31, 2017 15:18 Carla Landa MD Oct 31, 2017 23:28
== END 2017-10-31 16:02 | disposition home or self-care (01) ==
LOC: NEPC 10:55 → NEDA 14:03 → NEPFCDU 16:18
PROVIDERS: ADMIT Family Medicine; ATTEND Family Medicine
DX: K25.9 Gastric ulcer, unspecified as acute or chronic, without hemorrhage or perforation (principal); F14.10 Cocaine abuse, uncomplicated; F25.9 Schizoaffective disorder, unspecified; I10 Essential (primary) hypertension; B00.9 Herpesviral infection, unspecified; F31.9 Bipolar disorder, unspecified; K21.9 Gastro-esophageal reflux disease without esophagitis; R35.0 Frequency of micturition; R63.1 Polydipsia; J45.909 Unspecified asthma, uncomplicated; D25.9 Leiomyoma of uterus, unspecified; R56.9 Unspecified convulsions; F17.210 Nicotine dependence, cigarettes, uncomplicated; Z79.899 Other long term (current) drug therapy
CPT/HCPCS: 00731; 43239; 74177; 80053; 80307; 81001; 83605; 83690; 84703; 85025; 85652; 86140; 88305; 88312; 93005; 96361; 96372; 96374; 96375; 96376; 99285; G0378; J0500; J2270; J3480; J7030; Q9967